=== PATIENT | female | born 1995 | race Caucasian/White ===

== ENCOUNTER 2018-02-26 19:56 | Emergency (ER) | payer OTHER ==
[2018-02-26 20:59] LABS: Urine Specific Gravity 1.015 (1.005-1.030)
[2018-02-26 21:00] LABS: Urine Blood TRACE (NEG); Urine Glucose NEGATIVE (NEG); Urine Protein NEGATIVE (NEG); Urine Specific Gravity 1.015 (1.005-1.030)
[2018-02-26] MEDS ORDERED: KETOROLAC 30 MG/ML INJ ONE (21:47)
--- NOTE | 2018-02-26 21:57 | RAD REPORT ---
EXAM DESCRIPTION: CT - Stone Protocol - 02/26/2018 9:41 pm CLINICAL HISTORY: Flank pain. Nausea COMPARISON: 07/29/2017, 06/30/2017 TECHNIQUE: Axial images were obtained without oral or IV contrast. Lack of contrast limits solid org an and vascular assessment. The [id number] spans the entirety of the system partially obscuring uppermost abdomen and lung bases. Coronal reformatted images were obtained and reviewed. All CT scans are performed using dose optimization technique as appropriate and may include automated exposure control or mA/KV adjustment according to patient size. FINDINGS: The lower lung lund are clear. Imaged portions of the liver and spleen show no suspicious findings on non-contrast imaging. The panc reas and adrenal glands are normal. No pathologic lymphadenopathy in the abdomen or pelvis. No urinary tract stones or obstructive uropathy. No bowel obstruction, free air, free fluid or abscess. Normal appendix noted. No significant bony abnormality. IMPRESSION: No urinary tract stones or obstructive uropathy.
--- NOTE | 2018-02-26 22:01 | EDPHYS ---
Physician Documentation [facility] Name: Crys Tovar Age: 22 yrs Sex: Female : 1995 Arrival Date: 02/26/2018 Time: 20:10 Bed 27 Private MD: ED Physician Savannah Jimenez HPI: 02/26 21:16 This 22 yrs old Female presents to ER via Ambulatory with complaints of snw Vaginal Bleeding, Nausea. 21:16 The patient presents with vaginal bleeding that is light, x 8 days. Onset: The snw symptoms/episode began/occurred gradually. Associated signs and symptoms: Pertinent positives: nausea. Severity of symptoms: At their worst the symptoms were moderate, right lower quad pain started today. The patient has not experienced similar symptoms in the past. It is unknown whether or not the patient has recently seen a physician. [employer]: 20:17 LMP 02/18/2018 aa1 Historical: - Allergies: 20:17 No Known Allergies; aa1 - Home Meds: 20:17 Lexapro Oral [Active]; aa1 - PMHx: 20:17 Anxiety; aa1 - PSHx: 20:17 Tonsillectomy; Adenoids; aa1 - Immunization history:: Flu vaccine is not up to date. - Social history:: Smoking status: Patient/guardian denies using tobacco. ROS: 21:15 Constitutional: Negative for fever, chills, and weight loss, Eyes: Negative for injury, snw pain, redness, and discharge, ENT: Negative for injury, pain, and discharge, Neck: Negative for injury, pain, and swelling, Cardiovascular: Negative for chest pain, palpitations, and edema, Respiratory: Negative for shortness of breath, cough, wheezing, and pleuritic chest pain, Abdomen/GI: Positive for abdominal pain, nausea, negative for vomiting, diarrhea, and constipation, Back: Negative for injury and pain, MS/Extremity: Negative for injury and deformity, Skin: Negative for injury, rash, and discoloration, Neuro: Negative for headache, weakness, numbness, tingling, and seizure. 21:15 : Positive for vaginal bleeding, x 8 days. Exam: 21:14 Constitutional: This is a well developed, well nourished patient who is awake, alert, snw and in no acute distress. Head/Face: Normocephalic, atraumatic. Eyes: Pupils equal round and reactive to light, extra-ocular motions intact. Lids and lashes normal. Conjunctiva and sclera are non-icteric and not injected. Cornea within normal limits. Periorbital areas with no swelling, redness, or edema. ENT: Nares patent. No nasal discharge, no septal abnormalities noted. Tympanic membranes are normal and external auditory canals are clear. Oropharynx with no redness, swelling, or masses, exudates, or evidence of obstruction, uvula midline. Mucous membranes moist. Neck: Trachea midline, no thyromegaly or masses palpated, and no cervical lymphadenopathy. Supple, full range of motion without nuchal rigidity, or vertebral point tenderness. No Meningismus. Chest/axilla: Normal chest wall appearance and motion. Nontender with no deformity. No lesions are appreciated. Cardiovascular: Regular rate and rhythm with a normal S1 and S2. No gallops, murmurs, or rubs. Normal PMI, no JVD. No pulse deficits. Respiratory: Lungs have equal breath sounds bilaterally, clear to auscultation and percussion. No rales, rhonchi or wheezes noted. No increased work of breathing, no retractions or nasal flaring. Back: No spinal tenderness. No costovertebral tenderness. Full range of motion. Skin: Warm, dry with normal turgor. Normal color with no rashes, no lesions, and no evidence of cellulitis. MS/ Extremity: Pulses equal, no cyanosis. Neurovascular intact. Full, normal range of motion. Neuro: Awake and alert, GCS 15, oriented to person, place, time, and situation. Cranial nerves II-XII grossly intact. Motor strength 5/5 in all extremities. Sensory grossly intact. Cerebellar exam normal. Normal gait. 21:14 Abdomen/GI: Inspection: abdomen appears normal, Bowel sounds: normal, in all quadrants, Palpation: moderate abdominal tenderness, severe abdominal tenderness, in the right lower quadrant. Vital Signs: 20:17 BP 119 / 74; Pulse 75; Resp 16; Temp 97.6; Pulse Ox 100% on R/A; Weight 56.7 kg; Height aa1 5 ft. 1 in. (154.94 cm); Pain 7/10; 20:17 Body Mass Index 23.62 (56.70 kg, 154.94 cm) aa1 MDM: 20:57 Patient medically screened. snw 22:30 Data reviewed: vital signs, nurses notes. Data interpreted: Pulse oximetry: on room air snw is 100 %. Interpretation: normal. Counseling: I had a detailed discussion with the patient and/or guardian regarding: the historical points, exam findings, and any diagnostic results supporting the discharge/admit diagnosis, lab results, radiology results, the need for outpatient follow up, for definitive care, to return to the emergency department if symptoms worsen or persist or if there are any questions or concerns that arise at home. Special discussion: Based on the patient's Hx, exam, and Dx evaluation, there is no indication for emergent surgery or inpatient Tx. It is understood by the patient/guardian that if the Sx's persist or worsen they need to return immediately for re-evaluation. Based on the history and exam findings, there is no indication for further emergent testing or inpatient evaluation. 02/26 20:56 Order name: Urine Dipstick--Ancillary (enter results); Complete Time: 21:06 em1 02/26 20:56 Order name: Urine --Ancillary (enter results); Complete Time: 21:06 em1 02/26 21:11 Order name: CT Stone Protocol; Complete Time: 21:59 snw 02/26 20:51 Order name: Urine Test (obtain specimen) snw 02/26 20:51 Order name: Urine Dipstick-Ancillary (obtain specimen) snw Administered Medications: 21:36 Drug: TORadol 60 mg Route: IM; Site: left gluteus; lk1 22:30 Follow up: Response: No adverse reaction; Pain is unchanged, physician notified cr4 Disposition: 02/27 05:11 Co-signature as Attending Physician, Savannah Jimenez MD. ma2 Disposition: 02/26/18 22:00 Discharged to Home. Impression: Lower abdominal pain, unspecified. - Condition is Stable. - Discharge Instructions: Uterine Bleeding, Dysfunctional, Abdominal Pain, Women. - Prescriptions for Diclofenac Sodium 75 mg Oral Tablet Sustained Release - take 1 tablet by ORAL route 2 times per day; 30 tablet. - Medication Reconciliation Form, Thank You Letter, Antibiotic Education, Prescription Opioid Use form. - Follow up: Private Physician; When: 2 - 3 days; Reason: Recheck today's complaints, Continuance of care, Re-evaluation by your physician. Follow up: Emergency Department; When: As needed; Reason: Worsening of condition. Signatures: Dispatcher [employer] Crys Soriano RN RN aa1 Estefania Bennett, DESPATCHING AND RECEIVING CLERK-C DESPATCHING AND RECEIVING CLERK-Csnw Harini Herron RN RN cr4 Elizabeth Shahid RN RN lk1 Savannah Jimenez MD MD ma2
--- NOTE | 2018-02-26 22:01 | ER ---
Nurse's Notes [facility] Name: Crys Tovar Age: 22 yrs Sex: Female : 1995 Arrival Date: 02/26/2018 Time: 20:10 Bed 27 Private MD: Diagnosis: Lower abdominal pain, unspecified Presentation: 02/26 20:15 Presenting complaint: Patient states: vaginal bleeding and nausea x 8 days. Reports she aa1 is concerned bc her period normally only lasts 3 days. Denies heavy bleeding. States, "I just normal bleeding.". Transition of care: patient was not received from another setting of care. Onset of symptoms was February 18, 2018. Care prior to arrival: None. 20:15 Method Of Arrival: Ambulatory aa1 20:15 Acuity: DEB 3 aa1 Triage Assessment: 20:17 General: Appears in no apparent distress. uncomfortable, Behavior is calm, cooperative, aa1 appropriate for age. 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 - Social history:: Smoking status: Patient/guardian denies using tobacco. Screenin:00 Abuse screen: Denies threats or abuse. Nutritional screening: No deficits noted. cr4 Tuberculosis screening: No symptoms or risk factors identified. Fall Risk None identified. Assessment: 22:00 General: Appears uncomfortable, Behavior is calm, cooperative, appropriate for age. cr4 Pain: Complains of pain in right pelvis Pain does not radiate. Pain currently is 8 out of 10 on a pain scale. at worst was 8 out of 10 on a pain scale. Neuro: No deficits noted. Denies weakness blurred vision dizziness, difficulty swallowing, numbness headache. Cardiovascular: No deficits noted. Denies chest pain, lightheadedness, shortness of breath, syncope. Respiratory: No deficits noted. Airway is patent Trachea midline Respiratory effort is even, unlabored. GI: Reports nausea, Patient currently denies reports one loos bowel movement. : Reports vaginal bleeding that is bright red, light flow, 02/19 Denies burning with urination, cramping discharge, pain urinary frequency. EENT: No deficits noted. Derm: No deficits noted. Musculoskeletal: No deficits noted. 22:00 : Urine is clear. cr4 Vital Signs: 20:17 BP 119 / 74; Pulse 75; Resp 16; Temp 97.6; Pulse Ox 100% on R/A; Weight 56.7 kg; Height aa1 5 ft. 1 in. (154.94 cm); Pain 7/10; 20:17 Body Mass Index 23.62 (56.70 kg, 154.94 cm) aa1 ED Course: 20:10 Patient arrived in ED. al2 20:17 Triage completed. aa1 20:17 Arm band placed on right wrist. Patient placed in waiting room, Patient notified of aa1 wait time. 20:43 Urine collected: clean catch specimen, clear. aa1 20:44 Elizabeth Shahid RN is Primary Nurse. lk1 20:50 Estefania Bennett FNP-C [facility]. snw 20:50 Savannah Jimenez MD is Attending Physician. snw 21:38 CT completed. Patient moved to CT via wheelchair. Patient moved back from CT. bq 21:41 CT Stone Protocol In Process Unspecified. EDMS 22:00 Patient has correct armband on for positive identification. Side rails up X 1. Warm cr4 blanket given. 22:34 No provider procedures requiring assistance completed. Patient did not have IV access cr4 during this emergency room visit. Administered Medications: 21:36 Drug: TORadol 60 mg Route: IM; Site: left gluteus; lk1 22:30 Follow up: Response: No adverse reaction; Pain is unchanged, physician notified cr4 Outcome: 22:00 Discharge ordered by . snw 22:26 Patient left the ED. cr4 22:34 Discharged to home ambulatory, with friend. cr4 22:34 Condition: stable 22:34 Discharge instructions given to patient, friend, Instructed on discharge instructions, follow up and referral plans. no drinking with medication, medication usage, Demonstrated understanding of instructions, follow-up care, medications, Prescriptions given X 1. Signatures: Dispatcher [employer] EDRI Crys Saldivar RN RN aa1 Estefania Bennett FNP-C FNP-Csnw Sharifa Lea Claudia RN RN cr4 Elizabeth Shahid RN RN lk1 Laly, Leticia tavera2
== END 2018-02-26 22:26 | disposition home or self-care (01) ==
LOC: ER 19:56
DX: R10.31 Right lower quadrant pain (principal); F41.9 Anxiety disorder, unspecified
CPT/HCPCS: 74176; 76377; 81003; 81025; 96372; 99284

== ENCOUNTER 2018-07-03 18:08 | Emergency (ER) | payer OTHER ==
[2018-07-03 18:37] LABS: Absolute Lymphocytes (CBC) 2.2 K/uL (0.7-4.9); Absolute Monocytes 0.4 K/uL (0.1-1.3); Absolute Neutrophil 3.5 K/uL (1.8-8.0); Basophils % 0.8 % (0-1.3); Eosinophils % 1.1 % (0-4.4); Hematocrit 42.3 % (36.0-45.0); Lymphocytes % 35.3 % (15.3-44.8); MCH 34.9 pg (27.0-35.0); MCV 101.7 fL (80-100); MPV 9.6 fL (7.6-11.3); Monocytes % 6.8 % (3.3-12.3); RBC Red Blood Cell Count 4.15 M/uL (3.86-4.86)
[2018-07-03 18:40] LABS: Protime INR 1.02
[2018-07-03 18:59] LABS: Bilirubin Direct 0.1 mg/dL (0-0.2); Bilirubin Total 0.3 mg/dL (0.2-1.0); Magnesium 2.4 mg/dL (1.8-2.4); Potassium 3.5 mmol/L (3.5-5.1); Protein, Total 7.6 g/dL (6.4-8.2)
[2018-07-03 19:17] LABS: Barbiturates NEGATIVE (NEGATIVE); Benzodiazepines NEGATIVE (NEGATIVE); Cocaine NEGATIVE (NEGATIVE); METHAMPHETAM NEGATIVE (NEGATIVE); Methadone NEGATIVE (NEGATIVE); Opiates NEGATIVE (NEGATIVE); Phencyclidine NEGATIVE (NEGATIVE); THC Cannibis POSITIVE (NEGATIVE)
[2018-07-03 19:22] LABS: Urine Blood NEGATIVE (NEG); Urine Glucose NEGATIVE (NEG); Urine Protein NEGATIVE (NEG); Urine Specific Gravity 1.025 (1.005-1.030)
--- NOTE | 2018-07-03 19:39 | RAD REPORT ---
EXAM DESCRIPTION: RAD - Chest Single View - 07/03/2018 7:25 pm CLINICAL HISTORY: Chest pain COMPARISON: November 2011 TECHNIQUE: AP portable chest image was obtained 1909 hours . FINDINGS: Lungs are clear. Heart and vasculature are normal. No measurable pleural effusion and no p neumothorax. No gross bony abnormality seen. No acute aortic findings suspected. IMPRESSION: No acute cardiopulmonary process. No significant change from comparison.
--- NOTE | 2018-07-03 20:17 | RAD REPORT ---
EXAM DESCRIPTION: CT - Head Brain Wo Cont - 07/03/2018 8:05 pm CLINICAL HISTORY: Left-sided arm weakness and numbness COMPARISON: None. TECHNIQUE: Axial 5 mm thick images of the head were obtained without IV contrast. All CT scans are performed using dose optimization technique as appropriate and may include automated exposure control or mA/KV adjustment according to patient size. FINDINGS: No intracranial hemorrhage, mass, edema or shift of mid-line structures. No acute infarcti on changes seen. No abnormal extra-axial fluid collections. Ventricles are normal. Mastoid air cells and visualized portions of the paranasal sinuses are clear. No acute bony findings. IMPRESSION: Negative non-contrast CT head examination.
--- NOTE | 2018-07-03 20:20 | RAD REPORT ---
EXAM DESCRIPTION: CT - Head angio - 07/03/2018 8:06 pm CLINICAL HISTORY: Left-sided weakness and numbness COMPARISON: None. TECHNIQUE: During dynamic enhancement using nonionic IV contrast, sagittal and axial 2 millimeter th ick images were generated using maximum intensity projection protocol and reviewed. FINDINGS: No aneurysm or vascular malformation. No occlusion identified. There is no vasculitis or o ther focal arterial abnormality seen. Major venous sinuses are patent. IMPRESSION: Negative CT angio head
--- NOTE | 2018-07-03 20:22 | RAD REPORT ---
EXAM DESCRIPTION: CT - Neck Angio - 07/03/2018 8:06 pm CLINICAL HISTORY: Left-sided numbness and weakness COMPARISON: None. TECHNIQUE: During dynamic enhancement using nonionic IV contrast, axial 2 millimeter thick images we re obtained. Sagittal and coronal reformatted images were generated using maximum intensity projectio n protocol. 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 Great vessel origins show no suspicious findings. Both vertebral artery origins are unremarkable. Left vertebral artery is dominant. No vertebral artery dissection. Basilar artery is no rmal. Bilateral common carotid arteries show no dissection, stenosis or focal abnormality. Jugular veins ar e normal. IMPRESSION: Negative CT angio neck.
[2018-07-03] MEDS ORDERED: METOCLOPRAMIDE 10 MG/2mL INJ ONE (20:35)
[2018-07-03] MEDS ORDERED: ONDANSETRON 4 MG/2 ML VIAL ONE (20:35)
[2018-07-03] MEDS ORDERED: ACETAMINOPHEN 325 MG TABLET ONE (20:35)
--- NOTE | 2018-07-03 20:50 | ER ---
Nurse's Notes [facility] Name: Crys Tovar Age: 23 yrs Sex: Female : 1995 Arrival Date: 07/03/2018 Time: 18:11 Bed 7 Private MD: Diagnosis: Weakness-Left Arm and Left Leg;Headache Presentation: 07/03 18:15 Pre-hospital glucose is not applicable to this patient. sv 18:20 Presenting complaint: Mother states: She started texting this morning saying that she aj1 didn't feel good, she was having chest pain that felt like something sitting on her chest, then she started having numbness on her left arm and leg. She said that she couldn't hold anything in her hand. States that these texts started at approximately 0945 this morning, she last saw her daughter appearing normal yesterday. Patient appears drowsy, leaning toward left side of wheelchair. 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 Patient appears to fall asleep when she is not being engaged. Transition of care: patient was not received from another setting of care. An acute neurological deficit is present. The charge nurse has been notified. Onset of symptoms was July 03, 2018 at 09:45. Risk Assessment: Do you want to hurt yourself or someone else? Patient reports no desire to harm self or others. Initial Sepsis Screen: Does the patient meet any 2 criteria? No. Patient's initial sepsis screen is negative. Does the patient have a suspected source of infection? No. Patient's initial sepsis screen is negative. Care prior to arrival: None. 18:20 Method Of Arrival: Wheelchair aj 18:20 Acuity: DEB 2 aj1 Triage Assessment: 18:25 The onset of the patients symptoms was more than six hours ago. The onset of the aj1 patients symptoms was July 03, 2018 at 09:45. General: Appears. General: Appears in no apparent distress. Behavior is drowsy, listless. Pain: Complains of pain in forehead and chest Quality of pain is described as pressure. Neuro: Level of Consciousness is listless, Oriented to person, place, time, situation, Director Instrumentation are weak on left Weakness in left arm(s) leg(s) Pupils are PERRLA, Numbness in left arm and left leg Reports numbness in left arm and left leg weakness in left arm and left leg. Cardiovascular: Patient's skin is warm and dry. Respiratory: Airway is patent Respiratory effort is even, unlabored, Respiratory pattern is regular, symmetrical. 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: 18:25 LMP N/A - control method aj1 Stroke Activation: Symptom onset > 6 hours Physician: Stroke Attending; Name: ; Notified At: ; Arrived At: Physician: Chief Stroke Resident; Name: ; Notified At: ; Arrived At: Physician: Stroke Resident; Name: ; Notified At: ; Arrived At: Physician: ED Attending; Name: ; Notified At: ; Arrived At: Physician: ED Resident; Name: ; Notified At: ; Arrived At: Historical: - Allergies: 18:25 No Known Allergies; aj1 - Home Meds: 18:25 Lexapro Oral [Active]; anxiety medication [Active]; aj1 - PMHx: 18:25 Anxiety; aj1 - PSHx: 18:25 Tonsillectomy; aj1 - Immunization history:: Adult Immunizations up to date. - Social history:: Smoking status: Patient/guardian denies using tobacco. - Ebola Screening: : No symptoms or risks identified at this time. Screenin:23 Abuse screen: Denies threats or abuse. Denies injuries from another. Nutritional sv screening: No deficits noted. Tuberculosis screening: No symptoms or risk factors identified. Fall Risk None identified. 19:19 The patient has not been NPO before screening. The patient is alert, able to follow ao commands. The patient does not exhibit slurred or garbled speech The patient is not exhibiting difficulty speaking. The patient does not exhibit difficulty understanding words. The patient is able to swallow own secretions with no drooling or need for suction. Patient tolerated one teaspoon of water. No drooling, immediate coughing, gurgling, or clearing of the throat was noted. The patient tolerated 90mL of water. No drooling, immediate coughing, gurgling, or clearing of the throat was noted. The patient passed the bedside swallow screening. Oral medications may be given as ordered. Contact Physician for further diet orders. Assessment: 18:15 General: Appears in no apparent distress. uncomfortable, well developed, Behavior is sv cooperative, appropriate for age, anxious. Pain: Complains of pain in chest Pain currently is 5 out of 10 on a pain scale. Quality of pain is described as pressure, "feels like an elephant is sitting on my chest." Pain began 0800 this morning Is intermittent. Neuro: Level of Consciousness is awake, obeys commands, lethargic, Oriented to Director Instrumentation are weak on left Weakness in left arm(s) leg(s) Gait is unsteady, Speech is slurred, Facial droop on left, Facial symmetry: tongue is midline, Reports headache in right numbness in left side of forehead, left christian, left zygomatic area, left cheek, left arm, left leg, left lateral aspect of neck and left anterior aspect of neck weakness Denies blurred vision diplopia. Cardiovascular: Patient's skin is warm and dry. Pulses are 3+ in right radial artery and left radial artery Rhythm is sinus rhythm. Respiratory: Respiratory effort is even, unlabored, Respiratory pattern is regular, symmetrical. GI: Abdomen is flat. : No signs and/or symptoms were reported regarding the genitourinary system. EENT: No signs and/or symptoms were reported regarding the EENT system. Derm: Skin is pink, warm \\T\\ dry. Musculoskeletal: Range of motion: intact in all extremities. 18:40 General: Reports she worked a double yesterday at work and felt "like I was off balance sv but I thought it was because I worked a lot." Pt went to bed around 2300 and woke up around 0800 and felt like an elephant was sitting on her chest. Pt went to work around 1000/1030 and felt numbness to her left side and had a headache on her right head. Pt finished work and got off around 1630 and her mother went to go pick her up and brought her here to the ER. 18:45 Reassessment: Dr Sharpe at bedside assessing pt and speaking with mother about POC. sv 19:00 Reassessment: CT called and informed UPT is negative. sv 19:21 The patient has not been NPO before screening. The patient is alert, and able to follow ao commands. The patient does not exhibit slurred or garbled speech. The patient is not exhibiting difficulty speaking. The patient does not exhibit difficulty understanding words. The patient is able to swallow own secretions with no drooling or need for suction. Patient tolerated one teaspoon of water. No drooling, immediate coughing, gurgling, or clearing of the throat was noted. The patient tolerated 90mL of water. No drooling, immediate coughing, gurgling, or clearing of the throat was noted. The patient passed the bedside swallow screening. Oral medications may be given as ordered. Contact Physician for further diet orders. Provider notified of bedside swallow screening results: Aj Sharpe MD. 19:22 General: Appears in no apparent distress. comfortable, Behavior is calm, cooperative, ao appropriate for age. Pain: Denies pain. Neuro: Level of Consciousness is awake, obeys commands, lethargic, Oriented to person, place, time, situation, Appropriate for age Moves all extremities. Weakness in left arm(s) leg(s) Speech is normal, Facial symmetry appears normal. Cardiovascular: Patient's skin is warm and dry. Pulses are 3+ in right radial artery, right posterior tibial artery, left radial artery and left posterior tibial artery Rhythm is sinus rhythm. Respiratory: Airway is patent Respiratory effort is even, unlabored, Respiratory pattern is regular, symmetrical. GI: Abdomen is flat. : No signs and/or symptoms were reported regarding the genitourinary system. EENT: No signs and/or symptoms were reported regarding the EENT system. Derm: Skin is pink, warm \\T\\ dry. normal, Skin temperature is warm. Musculoskeletal: Circulation, motion, and sensation intact. Range of motion: intact in all extremities, Reports weakness in left side. 20:43 Reassessment: Patient appears in no apparent distress at this time. Patient and/or ao family updated on plan of care and expected duration. Pain level reassessed. Patient is alert, oriented x 3, equal unlabored respirations, skin warm/dry/pink. Patient states feeling better. 22:21 T-PA (Activase) Screening: Contraindications: Other: las well know was 24 hr. ao Vital Signs: 18:25 BP 102 / 68; Pulse 89; Resp 18; Temp 98.5(O); Pulse Ox 99% on R/A; aj1 19:26 BP 112 / 79; Pulse 87; Resp 12; Pulse Ox 98% on R/A; Pain 0/10; ao 20:43 BP 110 / 61; Pulse 82; Resp 16; Pulse Ox 100% ; Pain 0/10; ao [place] Score: 18:28 Eye Response: spontaneous(4). Verbal Response: oriented(5). Motor Response: obeys cp commands(6). Total: 15. NIH Stroke Scale Scores: 18:28 NIHSS Score: 9 cp 18:39 NIHSS Score: 9 sv 19:19 NIHSS Score: 7 ao ED Course: 18:11 Patient arrived in ED. aj1 18:12 Arm band placed on Patient placed in an exam room. aj1 18:15 León Hill NP is PHCP. pm1 18:15 Aj Sharpe MD is Attending Physician. pm1 18:15 Nurse Practitioner and/or Physician Hardwood Flooring Specialist to see patient. sv 18:16 José Manuel Lanza PA is PHCP. pm1 18:20 Initial lab(s) drawn, by me, sent to lab. Inserted saline lock: 18 gauge in right sv antecubital area, using aseptic technique. Blood collected. Flushed right antecubital with 5 ml normal saline. 18:22 Abena Hdez RN is Primary Nurse. sv 18:23 Patient has correct armband on for positive identification. Placed in gown. Bed in low sv position. Call light in reach. Side rails up X2. Adult w/ patient. linter saw sharpener on. Pulse ox on. NIBP on. Door closed. Head of bed elevated. 18:24 Triage completed. aj1 18:29 EKG done, by ED staff, reviewed by José Manuel MILLIGAN. 3 18:30 Radiology exam delayed due to lab results not completed at this time. (BUN/Creatinine). kw1 18:55 Speci-cath kit inserted, using sterile technique, 16 Fr., specimen obtained. returned sv cloudy urine. Patient tolerated poorly. 19:13 Report given to Vanna HAYDEN and Jass RN. sv 19:15 Primary Nurse role handed off by Abena Hdez RN sv 19:19 Jass Webb, JACKELYN is Primary Nurse. ao 19:25 XRAY Chest (1 view) In Process Unspecified. EDMS 19:55 Tigre Knox MD is Attending Physician. cp 20:05 CT completed. Patient moved to CT via stretcher. Patient moved back from CT. cw1 20:06 CT Head Brain wo Cont In Process Unspecified. EDMS 20:06 Head angio In Process Unspecified. EDMS 20:06 Neck Angio In Process Unspecified. EDMS 22:20 No provider procedures requiring assistance completed. Patient transferred, IV remains ao in place. Administered Medications: 20:35 Drug: Tylenol 650 mg Route: PO; ao 21:41 Follow up: Response: No adverse reaction ao 20:38 Drug: Reglan 10 mg Route: IVP; Site: right antecubital; ao 21:41 Follow up: Response: No adverse reaction ao 20:38 Drug: Zofran 4 mg Route: IVP; Site: right antecubital; ao 21:41 Follow up: Response: No adverse reaction ao Point of Care Testing: Blood Glucose: 18:20 Blood Glucose: 89 mg/dL; sv Ranges: Outcome: 20:50 ER care complete, transfer ordered by . cp 22:20 [place] [facility] ground [facility] [place] [facility] [facility] [place] sent w/ patient. ao 22:20 Condition: stable 22:20 Instructed on the need for transfer. 22:21 Patient left the ED. ao NIH Stroke Scale - NIH Stroke Score Date: 07/03/2018 Time: 18:28 Total Score = 9 1a. Level of Consciousness (LOC) - 0(Alert) 1b. Level of Consciousness (LOC) (Year \\T\\ Age) - 0(Both) 1c. LOC Commands (Open \\T\\ Closes Eyes/Packager And Strapper) - 0(Both) 2. Best Gaze (Lateral Gaze Paresis) - 0(Normal) 3. Visual Field Loss - 0(No visual loss) 4. Facial Palsy - 1(Minor Paralysis) 5a. Left Arm: Motor (10-second hold) - 2(Drift, some effort against gravity) 5b. Right Arm: Motor (10-second hold) - 0(No drift) 6a. Left Leg: Motor (5-second hold - always test supine) - 2(Drift, some effort against gravity) 6b. Right Leg: Motor (5-second hold - always test supine) - 0(No drift) 7. Limb Ataxia (finger/nose \\T\\ heel/rizzo - test with eyes open) - 2(Present in two limbs) 8. Sensory Loss (pinprick arms/legs/face) - 1(Mild to moderate loss) 9. Best Language: Aphasia (description/naming/reading) - 0(No aphasia) 10. Dysarthria (speech clarity - read or repeat words) - 1(Mild to Moderate) 11. Extinction and Inattention (visual/tactile/auditory/spatial/personal) - 0(No abnormality) Initials: cp NIH Stroke Scale - NIH Stroke Score Date: 07/03/2018 Time: 18:39 Total Score = 9 1a. Level of Consciousness (LOC) - 0(Alert) 1b. Level of Consciousness (LOC) (Year \\T\\ Age) - 0(Both) 1c. LOC Commands (Open \\T\\ Closes Eyes/Packager And Strapper) - 0(Both) 2. Best Gaze (Lateral Gaze Paresis) - 0(Normal) 3. Visual Field Loss - 0(No visual loss) 4. Facial Palsy - 0(Normal) 5a. Left Arm: Motor (10-second hold) - 3(No effort against gravity) 5b. Right Arm: Motor (10-second hold) - 0(No drift) 6a. Left Leg: Motor (5-second hold - always test supine) - 3(No effort against gravity) 6b. Right Leg: Motor (5-second hold - always test supine) - 0(No drift) 7. Limb Ataxia (finger/nose \\T\\ heel/rizzo - test with eyes open) - 1(Present in one limb) 8. Sensory Loss (pinprick arms/legs/face) - 1(Mild to moderate loss) 9. Best Language: Aphasia (description/naming/reading) - 0(No aphasia) 10. Dysarthria (speech clarity - read or repeat words) - 1(Mild to Moderate) 11. Extinction and Inattention (visual/tactile/auditory/spatial/personal) - 0(No abnormality) Initials: sv NIH Stroke Scale - NIH Stroke Score Date: 07/03/2018 Time: 19:19 Total Score = 7 1a. Level of Consciousness (LOC) - 0(Alert) 1b. Level of Consciousness (LOC) (Year \\T\\ Age) - 0(Both) 1c. LOC Commands (Open \\T\\ Closes Eyes/Packager And Strapper) - 0(Both) 2. Best Gaze (Lateral Gaze Paresis) - 0(Normal) 3. Visual Field Loss - 0(No visual loss) 4. Facial Palsy - 0(Normal) 5a. Left Arm: Motor (10-second hold) - 3(No effort against gravity) 5b. Right Arm: Motor (10-second hold) - 0(No drift) 6a. Left Leg: Motor (5-second hold - always test supine) - 3(No effort against gravity) 6b. Right Leg: Motor (5-second hold - always test supine) - 0(No drift) 7. Limb Ataxia (finger/nose \\T\\ heel/rizzo - test with eyes open) - 1(Present in one limb) 8. Sensory Loss (pinprick arms/legs/face) - 0(Normal) 9. Best Language: Aphasia (description/naming/reading) - 0(No aphasia) 10. Dysarthria (speech clarity - read or repeat words) - 0(Normal) 11. Extinction and Inattention (visual/tactile/auditory/spatial/personal) - 0(No abnormality) Initials: ao Signatures: Dispatcher [employer] Barbara Antoine RN RN aj1 Abena Hdez RN RN Clementine Aiken cw1 José Manuel Lanza PA PA Jass Valdovinos RN RN León Saavedra, FORENSIC STRUCTURAL ENGINEER FORENSIC STRUCTURAL ENGINEER 1 Linda Dowling 3 Britany Combs kw1 Corrections: (The following items were deleted from the chart) 18:28 18:25 Arm band placed on Patient placed in an exam room, aj1 aj1
--- NOTE | 2018-07-03 20:51 | EDPHYS ---
Physician Documentation [facility] Name: Crys Tovar Age: 23 yrs Sex: Female : 1995 Arrival Date: 07/03/2018 Time: 18:11 Bed 7 Private MD: ED Physician Tigre Knox HPI: 07/03 18:19 This 23 yrs old Female presents to ER via Unassigned with complaints of S/S cp of Possible Stroke. 18:19 The patient's problem is reported as weakness, in the left upper extremity, in the left cp lower extremity, slurred speech. 18:19 Onset: The symptoms/episode began/occurred this morning, at 10:00. Duration: The cp episode is continuous. Associated signs and symptoms: Pertinent positives: chest pain, headache, Pertinent negatives: abdominal pain, vomiting. Severity of symptoms: in the emergency department the symptoms are unchanged. Patient's baseline: Neuro: alert and fully oriented, Motor: no deficits, Ambulation: walks without assistance, Speech: normal. 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 - Social history:: Smoking status: Patient/guardian denies using tobacco. - Ebola Screening: : No symptoms or risks identified at this time. ROS: 18:23 Constitutional: Negative for body aches, chills, fever, poor PO intake. cp 18:25 Eyes: Negative for injury, pain, redness, and discharge. cp 18:25 ENT: Negative for drainage from ear(s), ear pain, sore throat, difficulty swallowing, cp difficulty handling secretions. 18:25 Cardiovascular: Positive for chest pain, Negative for edema, palpitations. 18:25 Respiratory: Negative for cough, shortness of breath, wheezing. 18:25 Abdomen/GI: Negative for abdominal pain, nausea, vomiting, and diarrhea, constipation, black/tarry stool, rectal bleeding. 18:25 Back: Negative for pain at rest, pain with movement, radiated pain. 18:25 Skin: Negative for cellulitis, rash. 18:25 Neuro: Positive for headache, speech changes, weakness, of the left arm and left leg, Negative for altered mental status, dizziness, seizure activity, syncope, near syncope. 18:25 All other systems are negative. Exam: 18:25 Head/Face: Normocephalic, atraumatic. Eyes: Pupils equal round and reactive to light, cp extra-ocular motions intact. Lids and lashes normal. Conjunctiva and sclera are non-icteric and not injected. Cornea within normal limits. Periorbital areas with no swelling, redness, or edema. ENT: Nares patent. No nasal discharge, no septal abnormalities noted. Tympanic membranes are normal and external auditory canals are clear. Oropharynx with no redness, swelling, or masses, exudates, or evidence of obstruction, uvula midline. Mucous membranes moist. Neck: Trachea midline, no thyromegaly or masses palpated, and no cervical lymphadenopathy. Supple, full range of motion without nuchal rigidity, or vertebral point tenderness. No Meningismus. Chest/axilla: Normal chest wall appearance and motion. Nontender with no deformity. No lesions are appreciated. 18:25 Constitutional: The patient appears in no acute distress, alert, awake, non-diaphoretic, non-toxic, well developed, well nourished. 18:25 Cardiovascular: Rate: normal, Rhythm: regular, Pulses: Pulses are 2+ in right radial artery and left radial artery. Edema: is not appreciated, JVD: is not appreciated. 18:25 Respiratory: the patient does not display signs of respiratory distress, Respirations: normal, no use of accessory muscles, no retractions, no splinting, no tachypnea, labored breathing, is not present, Breath sounds: are clear throughout, no decreased breath sounds, no stridor, no wheezing. 18:25 Abdomen/GI: Inspection: abdomen appears normal, Bowel sounds: active, all quadrants, Palpation: abdomen is soft and non-tender, in all quadrants, rebound tenderness, is not appreciated, voluntary guarding, is not appreciated, involuntary guarding, is not appreciated. 18:25 Back: pain, is absent, ROM is normal. 18:25 Skin: cellulitis, is not appreciated, no rash present. 18:33 ECG was reviewed by the Attending Physician. cp 20:28 Radiologist reports: no acute findings Vital Signs: 18:25 BP 102 / 68; Pulse 89; Resp 18; Temp 98.5(O); Pulse Ox 99% on R/A; aj1 19:26 BP 112 / 79; Pulse 87; Resp 12; Pulse Ox 98% on R/A; Pain 0/10; ao 20:43 BP 110 / 61; Pulse 82; Resp 16; Pulse Ox 100% ; Pain 0/10; ao NIH Stroke Scale Scores: 18:28 NIHSS Score: 9 cp 18:39 NIHSS Score: 9 sv 19:19 NIHSS Score: 7 ao Pierre Coma Score: 18:28 Eye Response: spontaneous(4). Verbal Response: oriented(5). Motor Response: obeys cp commands(6). Total: 15. MDM: 18:15 Patient medically screened. pm1 18:19 ED course: Patient is not candidate for tpa as onset of weakness to left side was cp before 1000 today. 19:00 Differential diagnosis: CVA, TIA, metabolic disorder, drug effects, cardiac arrythmia. cp 20:30 Data reviewed: vital signs, nurses notes, lab test result(s), EKG, radiologic studies, cp CT scan, plain films. 20:30 Test interpretation: by ED physician or midlevel provider: ECG, plain radiologic cp studies. 20:48 Physician consultation: was contacted at 20:40, DR Bravo, neurologist \T[facility], requests patient be admitted to hospitalist. 07/03 18:24 Order name: Basic Metabolic Panel; Complete Time: 19:11 cp 07/03 19:11 Interpretation: Normal except: GFR 79. cp 07/03 18:24 Order name: CBC with Diff; Complete Time: 18:59 cp 08 18:59 Interpretation: Normal except: MCV 101.7. cp 07/03 18:24 Order name: Ckmb; Complete Time: 19:11 cp 07/03 18:24 Order name: CPK; Complete Time: 19:11 cp 07/03 18:24 Order name: LFT's; Complete Time: 19:11 cp 12 19:59 Interpretation: Normal except: ALK 147; GLOB 3.6. cp 07/03 18:24 Order name: Magnesium; Complete Time: 19:11 cp 07/03 18:24 Order name: NT PRO-BNP; Complete Time: 19:11 cp 08/12 18:24 Order name: PT-INR; Complete Time: 18:59 cp 08/12 18:24 Order name: Ptt, Activated; Complete Time: 18:59 cp 08/12 18:24 Order name: Troponin (emerg Dept Use Only); Complete Time: 19:11 cp 08/12 18:26 Order name: Glucose, Ancillary Testing; Complete Time: 18:59 EDMS 08/12 18:26 Order name: UDS; Complete Time: 19:23 cp 08/12 19:23 Interpretation: Normal except: THC POSITIVE. cp 08/12 19:10 Order name: Urine Dipstick--Ancillary (enter results); Complete Time: 19:23 eb 08/12 19:10 Order name: Urine --Ancillary (enter results); Complete Time: 19:23 eb 08/12 18:24 Order name: Urine Test (obtain specimen); Complete Time: 19:03 cp 08/12 18:24 Order name: XRAY Chest (1 view); Complete Time: 19:59 cp 08/12 19:59 Interpretation: Report review. cp 08/12 18:24 Order name: EKG; Complete Time: 18:25 cp 08/12 18:24 Order name: Cardiac monitoring; Complete Time: 18:29 cp 08/12 18:24 Order name: EKG - Nurse/Tech; Complete Time: 18:29 cp 08/12 18:24 Order name: IV Saline Lock; Complete Time: 18:29 cp 08/12 18:24 Order name: Labs collected and sent; Complete Time: 18:29 cp 08/12 18:24 Order name: O2 Per Protocol; Complete Time: 18:29 cp 08/12 18:24 Order name: O2 Sat Monitoring; Complete Time: 18:29 cp 08/12 18:24 Order name: Urine Dipstick-Ancillary (obtain specimen); Complete Time: 19:03 cp 08/12 18:24 Order name: CT Head Brain wo Cont; Complete Time: 20:23 cp 08/12 20:23 Interpretation: Report reviewed. cp 08/12 18:25 Order name: Head angio; Complete Time: 20:23 EDMS 08/12 20:23 Interpretation: Report reviewed. cp 08/12 18:25 Order name: Neck Angio; Complete Time: 20:23 EDMS 08/12 20:25 Interpretation: Report reviewed. cp EC:33 Rate is 86 beats/min. Rhythm is regular. MD interval is normal. QRS interval is normal. cp QT interval is normal. Interpreted by me. Reviewed by me. Administered Medications: 20:35 Drug: Tylenol 650 mg Route: PO; ao 21:41 Follow up: Response: No adverse reaction ao 20:38 Drug: Reglan 10 mg Route: IVP; Site: right antecubital; ao 21:41 Follow up: Response: No adverse reaction ao 20:38 Drug: Zofran 4 mg Route: IVP; Site: right antecubital; ao 21:41 Follow up: Response: No adverse reaction ao Point of Care Testing: Blood Glucose: 18:20 Blood Glucose: 89 mg/dL; sv Ranges: Critical Glucose Levels:Adult <50 mg/dl or >400 mg/dl <40 mg/dl or >180 mg/dl Disposition: 07/04 04:42 Co-signature as Attending Physician, Tigre Knox MD. Disposition: 07/03/18 20:[address] [facility]. Diagnosis are Weakness - Left Arm and Left Leg, Headache. - Reason for transfer: Higher level of care. - Accepting physician is . - Condition is Stable. - Problem is new. - Symptoms have improved. NIH Stroke Scale - NIH Stroke Score Date: 07/03/2018 Time: 18:28 Total Score = 9 1a. Level of Consciousness (LOC) - 0(Alert) 1b. Level of Consciousness (LOC) (Year \T\ Age) - 0(Both) 1c. LOC Commands (Open \T\ Closes Eyes/Architectural Drafter) - 0(Both) 2. Best Gaze (Lateral Gaze Paresis) - 0(Normal) 3. Visual Field Loss - 0(No visual loss) 4. Facial Palsy - 1(Minor Paralysis) 5a. Left Arm: Motor (10-second hold) - 2(Drift, some effort against gravity) 5b. Right Arm: Motor (10-second hold) - 0(No drift) 6a. Left Leg: Motor (5-second hold - always test supine) - 2(Drift, some effort against gravity) 6b. Right Leg: Motor (5-second hold - always test supine) - 0(No drift) 7. Limb Ataxia (finger/nose \T\ heel/rizzo - test with eyes open) - 2(Present in two limbs) 8. Sensory Loss (pinprick arms/legs/face) - 1(Mild to moderate loss) 9. Best Language: Aphasia (description/naming/reading) - 0(No aphasia) 10. Dysarthria (speech clarity - read or repeat words) - 1(Mild to Moderate) 11. Extinction and Inattention (visual/tactile/auditory/spatial/personal) - 0(No abnormality) Initials: cp NIH Stroke Scale - NIH Stroke Score Date: 07/03/2018 Time: 18:39 Total Score = 9 1a. Level of Consciousness (LOC) - 0(Alert) 1b. Level of Consciousness (LOC) (Year \T\ Age) - 0(Both) 1c. LOC Commands (Open \T\ Closes Eyes/Architectural Drafter) - 0(Both) 2. Best Gaze (Lateral Gaze Paresis) - 0(Normal) 3. Visual Field Loss - 0(No visual loss) 4. Facial Palsy - 0(Normal) 5a. Left Arm: Motor (10-second hold) - 3(No effort against gravity) 5b. Right Arm: Motor (10-second hold) - 0(No drift) 6a. Left Leg: Motor (5-second hold - always test supine) - 3(No effort against gravity) 6b. Right Leg: Motor (5-second hold - always test supine) - 0(No drift) 7. Limb Ataxia (finger/nose \T\ heel/rizzo - test with eyes open) - 1(Present in one limb) 8. Sensory Loss (pinprick arms/legs/face) - 1(Mild to moderate loss) 9. Best Language: Aphasia (description/naming/reading) - 0(No aphasia) 10. Dysarthria (speech clarity - read or repeat words) - 1(Mild to Moderate) 11. Extinction and Inattention (visual/tactile/auditory/spatial/personal) - 0(No abnormality) Initials: sv NIH Stroke Scale - NIH Stroke Score Date: 07/03/2018 Time: 19:19 Total Score = 7 1a. Level of Consciousness (LOC) - 0(Alert) 1b. Level of Consciousness (LOC) (Year \T\ Age) - 0(Both) 1c. LOC Commands (Open \T\ Closes Eyes/Architectural Drafter) - 0(Both) 2. Best Gaze (Lateral Gaze Paresis) - 0(Normal) 3. Visual Field Loss - 0(No visual loss) 4. Facial Palsy - 0(Normal) 5a. Left Arm: Motor (10-second hold) - 3(No effort against gravity) 5b. Right Arm: Motor (10-second hold) - 0(No drift) 6a. Left Leg: Motor (5-second hold - always test supine) - 3(No effort against gravity) 6b. Right Leg: Motor (5-second hold - always test supine) - 0(No drift) 7. Limb Ataxia (finger/nose \T\ heel/rizzo - test with eyes open) - 1(Present in one limb) 8. Sensory Loss (pinprick arms/legs/face) - 0(Normal) 9. Best Language: Aphasia (description/naming/reading) - 0(No aphasia) 10. Dysarthria (speech clarity - read or repeat words) - 0(Normal) 11. Extinction and Inattention (visual/tactile/auditory/spatial/personal) - 0(No abnormality) Initials: ao Signatures: Dispatcher [employer] EDBarbara Tong RN RN aj1 José Manuel Lanza PA PA Jass Valdovinos RN RN ao [place], FIELD SALES REPRESENTATIVE FIELD SALES REPRESENTATIVE pm1 Tigre Knox MD MD gs Corrections: (The following items were deleted from the chart) 07/03 22:21 20:50 07/03/2018 20:[address] [facility]. ao Diagnosis is Weakness - Left Arm and Left Leg; Headache. Reason for transfer: Higher level of care. Accepting physician is . Condition is Stable. Problem is new. Symptoms have improved. cp
--- NOTE | 2018-07-04 05:41 | EKG ---
Test Date: 2018-07-03 Test Time: 18:21:59 Exhaust Worker: LAUREN MEASUREMENT RESULTS: Intervals: Rate: 86 HI: 152 QRSD: 78 QT: 360 QTc: 430 [place]: P: 65 HI: 152 QRS: 82 T: 46 INTERPRETIVE STATEMENTS: Normal sinus rhythm with sinus arrhythmia Normal ECG Compared to ECG 11/29/2011 21:32:36 No significant changes Electronically Signed On 07-04-18 05:40:38 CDT by Arcenio Bee
== END 2018-07-03 22:21 | disposition short-term general hospital (02) ==
LOC: ER 18:08
DX: R51 Headache (principal); F41.9 Anxiety disorder, unspecified
CPT/HCPCS: 36415; 70450; 70496; 70498; 71045; 80048; 80076; 80307; 81003; 81025; 82550; 82553; 82962; 83735; 83880; 84484; 85025; 85610; 85730; 93005; 96374; 96375; 99285; J2405; J2765; Q9967

== ENCOUNTER 2018-12-07 16:39 | Emergency (ER) | payer BC, OTHER ==
--- OUTSIDE RECORDS SUMMARY | 2018-12-07 16:41 | XMS REPORT ---
:1995 [facility] Address [address] [place] [address] Dr. Mcdonald [address] [place] [id number] Care Team Providers Name Role Phone PARI FAULKNER Unavailable Unavailable Problems This patient has no known problems. Allergies, Adverse Reactions, Alerts This patient has no known allergies or adverse reactions. Medications This patient has no known medications. Results Test Description Test Time Test Comments Text Results Atomic Results Result Comments MR, BRAIN, WITHOUT 2018-07-04 20:33:00 FINAL REPORT CONTRAST MRI Brain without contrast Clinical History: HemiplegiaPresents w/ acute onset left sided weakness since this AM Technique: MRI of the brain utilizing axial T2, FLAIR, GRE, DWI; sagittal and coronal T1-weighted images. Comparisons: None Findings: There is no evidence of acute infarct or hemorrhage. There are scattered nonspecific foci of FLAIR signal abnormality in the left greater than right cerebral subcortical white matter. There is no hydrocephalus, midline shift, or apparent mass effect. There are no extra-axial fluid collections. The craniocervical junction is preserved. The major intracranial flow-voids appear patent. IMPRESSION: No evidence of acute infarct, hemorrhage, or hydrocephalus. Scattered nonspecific white matter disease. Signed: Rose Mary Mancera MDReport Verified Date/Time: 07/04/2018 20:33:32 Reading Location: [facility] Radiology Reading Room D DRUG SCREEN, URINE 2018-07-04 15:42:00 Test Item Value Reference Range Comments BARBITURATE URINE (BEAKER) (test avkc=787) Negative Negative BENZODIAZEPINE SCREEN URINE (BEAKER) (test nclq=090) Negative Negative COCAINE (METAB.) SCREEN (BEAKER) (test uwqf=5052) Negative Negative METHADONE SCREEN (BEAKER) (test sglc=8938) Negative Negative OPIATE SCREEN URINE (BEAKER) (test agsd=522) Negative Negative CANNABINOID SCREEN URINE (BEAKER) (test uonb=428) Positive Negative AMPH/METHAMPH SCREEN (BEAKER) (test jzte=7659) Negative Negative PHENCYCLIDINE SCREEN URINE (BEAKER) (test tzrj=406) Negative Negative OXYCODONE SCREEN URINE (BEAKER) (test wqlz=9986) Negative Negative DRUG CUTOFF CONC.Cocaine 300 ng/mL Cannabinoid 50 ng/mL Benzodiazepine 200 ng/mLBarbiturate 200 ng/ mLPhencyclidine 25 ng/mLOpiate 300 ng/mLMethadone 300 ng/mLAmphetamine/ 1000 ng/mL MethamphetamineOxycodone 300 ng/mLThis assay provides an unconfirmed qualitative test result for the clinical management of patients in emergency situations. Chain of custody not maintained. Some jtsb-cba-bgtoxns medications, as well as adulterants, may cause inaccurate results. Clinical correlation should be applied. A more comprehensive drug screen or confirmation of a detected drug may be performed upon request.HEMOGLOBIN [id number] 14:46:00 Test Item Value Reference Range Comments HEMOGLOBIN A1C (BEAKER) (test rnnp=378) 4.9 % 4.3-6.1 [id number] 05:45:00 Test Item Value Reference Range Comments RPR SCREEN (BEAKER) (test xpum=470) Nonreactive Nonreactive VITAMIN [id number] 03:52:00 Test Item Value Reference Range Comments VITAMIN B12 (BEAKER) (test ghse=296) 348 pg/mL 213-816 TSH/FREE T4 IF [id number] 03:52:00 Test Item Value Reference Range Comments THYROID STIMULATING HORMONE (BEAKER) (test 1.95 uIU/mL 0.35-4.94 tcdi=714) [id number] 03:23:00 Test Item Value Reference Range Comments MAGNESIUM (BEAKER) (test ecvf=034) 2.0 mg/dL 1.6-2.6 BASIC METABOLIC [id number] 03:23:00 Test Item Value Reference Range Comments SODIUM (BEAKER) (test 138 meq/L 136-145 osqk=513) POTASSIUM (BEAKER) (test 3.7 meq/L 3.5-5.1 oxds=763) CHLORIDE (BEAKER) (test 105 meq/L 98-107 gyac=433) CO2 (BEAKER) (test 22 meq/L 22-29 yxnf=525) BLOOD UREA NITROGEN 15 mg/dL 7-21 (BEAKER) (test boql=111) CREATININE (BEAKER) (test 0.75 mg/dL 0.57-1.25 vjby=030) GLUCOSE RANDOM (BEAKER) 84 mg/dL 70-105 (test frkp=070) CALCIUM (BEAKER) (test 9.5 mg/dL 8.4-10.2 jhla=698) EGFR (BEAKER) (test 98 mL/min/1.73 sq m ESTIMATED GFR IS NOT vpup=8352) ACCURATE CREATININE CLEARANCE IN PREDICTING GLOMERULAR FILTRATION RATE. ESTIMATED GFR IS NOT APPLICABLE FOR DIALYSIS PATIENTS. LIPID [id number] 03:23:00 Test Item Value Reference Range Comments TRIGLYCERIDES (BEAKER) (test dqpe=545) 41 mg/dL CHOLESTEROL (BEAKER) (test kelo=473) 147 mg/dL HDL CHOLESTEROL (BEAKER) (test ifdu=817) 59 mg/dL LDL CHOLESTEROL CALCULATED (BEAKER) (test 80 mg/dL pztw=701) Triglyceride Reference Range: Low Risk <150 Borderline 150- 199 High Risk 200-499 Very High Risk >=500Cholesterol Reference Range: Low Risk <200 Borderline 200-239 High Risk > 240HDL Cholesterol Reference Range: Low Risk >=60 High Risk <40LDL Cholesterol Reference Range: Optimal <100 Near Optimal 100-129 Borderline 130-159 High 160-189 Very High >=190HEPATIC FUNCTION [id number] 03:23:00 Test Item Value Reference Range Comments TOTAL PROTEIN (BEAKER) (test dpaj=543) 6.9 gm/dL 6.0-8.3 ALBUMIN (BEAKER) (test cnem=2621) 4.0 g/dL 3.5-5.0 BILIRUBIN TOTAL (BEAKER) (test igdr=830) 0.3 mg/dL 0.2-1.2 BILIRUBIN DIRECT (BEAKER) (test lgdi=707) 0.2 mg/dL 0.1-0.5 ALKALINE PHOSPHATASE (BEAKER) (test ikqm=725) 127 U/L 40-150 AST (SGOT) (BEAKER) (test jiti=036) 21 U/L 5-34 ALT (SGPT) (BEAKER) (test aulz=185) 18 U/L 6-55 CREATINE KINASE (CK)2018-07-04 03:23:00 Test Item Value Reference Range Comments CREATINE KINASE TOTAL (BEAKER) (test swjk=330) 115 U/L 29-200 C-REACTIVE [id number] 03:23:00 Test Item Value Reference Range Comments C-REACTIVE PROTEIN (BEAKER) (test rffp=447) 0.14 mg/dL 0.00-0.50 CBC W/PLT COUNT & AUTO [id number] 03:16:00 Test Item Value Reference Range Comments WHITE BLOOD CELL COUNT (BEAKER) (test lxsq=102) 6.8 K/ L 3.5-10.5 RED BLOOD CELL COUNT (BEAKER) (test zfgn=043) 3.91 M/ L 3.93-5.22 HEMOGLOBIN (BEAKER) (test aipg=950) 13.5 GM/DL 11.2-15.7 HEMATOCRIT (BEAKER) (test tdhn=092) 39.6 % 34.1-44.9 MEAN CORPUSCULAR VOLUME (BEAKER) (test fume=612) 101.3 fL 79.4-94.8 MEAN CORPUSCULAR HEMOGLOBIN (BEAKER) (test 34.5 pg 25.6-32.2 dnfo=835) MEAN CORPUSCULAR HEMOGLOBIN CONC (BEAKER) (test 34.1 GM/DL 32.2-35.5 vcfr=511) RED CELL DISTRIBUTION WIDTH (BEAKER) (test 12.2 % 11.7-14.4 srqq=130) PLATELET COUNT (BEAKER) (test ayvl=264) 232 K/CU MM 150-450 MEAN PLATELET VOLUME (BEAKER) (test uwpw=385) 11.1 fL 9.4-12.3 NUCLEATED RED BLOOD CELLS (BEAKER) (test 0 /100 WBC 0-0 lajt=076) NEUTROPHILS RELATIVE PERCENT (BEAKER) (test 47 % hkpx=893) LYMPHOCYTES RELATIVE PERCENT (BEAKER) (test 43 % jsjt=318) MONOCYTES RELATIVE PERCENT (BEAKER) (test 7 % hyem=447) EOSINOPHILS RELATIVE PERCENT (BEAKER) (test 2 % exuc=735) BASOPHILS RELATIVE PERCENT (BEAKER) (test 1 % sorn=087) NEUTROPHILS ABSOLUTE COUNT (BEAKER) (test 3.22 K/ L 1.56-6.13 luzg=646) LYMPHOCYTES ABSOLUTE COUNT (BEAKER) (test 2.90 K/ L 1.18-3.74 llfe=809) MONOCYTES ABSOLUTE COUNT (BEAKER) (test 0.50 K/ L 0.24-0.36 deqa=971) EOSINOPHILS ABSOLUTE COUNT (BEAKER) (test 0.12 K/ L 0.04-0.36 opeb=319) BASOPHILS ABSOLUTE COUNT (BEAKER) (test 0.04 K/ L 0.01-0.08 cdks=636) IMMATURE GRANULOCYTES-RELATIVE PERCENT (BEAKER) 0 % 0-1 (test ebdv=5578)
--- OUTSIDE RECORDS SUMMARY | 2018-12-07 16:41 | XMS REPORT | Clinical Summary ---
:1995 Author Organization [facility] Address [address] [place] [address] Care Team Providers Name Role Phone Gabriel Brunson Primary Care Provider Allergies No Known Allergies Medications Medication Sig Dispensed Refills Start Date End Date Status escitalopram oxalate Take 10 mg by 0 Active (LEXAPRO) 10 MG tablet mouth daily. acetaminophen Take 2 tablets 30 tablet 0 07/05/2018 08/04/2018 (TYLENOL) 325 MG (650 mg total) tablet by mouth every 4 (four) hours as needed for up to 30 days. Active Problems Problem Noted Date Possible Migraine 07/05/2018 Suspected cerebrovascular accident (CVA) 07/04/2018 Left-sided weakness 07/04/2018 Anxiety 07/04/2018 Numbness and tingling in left upper extremity 07/04/2018 Encounters Date Type Specialty Care Team Description 07/03/2018 - Hospital Encounter Cardiology Pari Faulkner Anxiety; 07/05/2018 Rachel Watson, Left-sided weakness; Suspected cerebrovascular accident (CVA) Joe Paul MD after 12/06/2017 Family History Medical History Relation Name Comments Hearing loss Brother Diabetes Father Hyperlipidemia Father Hypertension Father Cancer Maternal Aunt Cancer Maternal Grandfather Cancer Maternal Grandmother Stroke Maternal Grandmother Diabetes Paternal Grandmother Stroke Paternal Grandmother Relation Name Status Comments Brother Father Maternal Aunt Maternal Grandfather Maternal Grandmother Paternal Grandmother Social History Tobacco Use Types Packs/Day Years Used Date Never Smoker Smokeless Tobacco: Never Used Alcohol Use Drinks/Week oz/Week Comments Yes 1 Glasses of wine 1.2 1 1 Shots of liquor Sex Assigned at Date Recorded Not on file Job Start Date Occupation Industry Not on file Not on file Not on file Travel History Travel Start Travel End No recent travel history available. Last Filed Vital Signs Vital Sign Reading Time Taken Blood Pressure 110/55 07/05/2018 7:20 AM CDT Pulse 72 07/05/2018 7:20 AM CDT Temperature 36.1 C (97 F) 07/05/2018 7:20 AM CDT Respiratory Rate 18 07/05/2018 7:20 AM CDT Oxygen Saturation 99% 07/05/2018 7:20 AM CDT Inhaled Oxygen Concentration - - Weight 58.8 kg (129 lb 10.1 oz) 07/04/2018 7:31 AM CDT Height 155.4 cm (5' 1.2") 07/04/2018 1:00 AM CDT Body Mass Index 24.33 07/04/2018 7:31 AM CDT Plan of Treatment Not on file Procedures Procedure Name Priority Date/Time Associated Comments Diagnosis REPORT OF PROCEDURE - 07/06/2018 8:10 ENDOSCOPY SCAN AM CDT RHYTHM STRIP - SCAN 07/06/2018 8:10 AM CDT MR BRAIN WITHOUT IV Routine 07/04/2018 7:50 Results for this CONTRAST PM CDT procedure are in the results section. ECHOCARDIOGRAM REPORT - 07/04/2018 2:52 SCAN PM CDT RAPID DRUG SCREEN, Routine 07/04/2018 2:36 Results for this URINE PM CDT procedure are in the results section. HEMOGLOBIN A1C Routine 07/04/2018 12:25 Results for this PM CDT procedure are in the results section. 2D ECHO W/ DOPPLER Routine 07/04/2018 10:43 Results for this (CW/PW/COLOR) AM CDT procedure are in the results section. CBC W/PLT COUNT & AUTO Routine 07/04/2018 2:39 Results for this DIFFERENTIAL AM CDT procedure are in the results section. C-REACTIVE PROTEIN Routine 07/04/2018 2:39 Results for this AM CDT procedure are in the results section. CREATINE KINASE (CK) Routine 07/04/2018 2:39 Results for this AM CDT procedure are in the results section. RPR Routine 07/04/2018 2:39 Results for this AM CDT procedure are in the results section. TSH/FREE T4 IF Routine 07/04/2018 2:39 Results for this INDICATED AM CDT procedure are in the results section. VITAMIN B12 Routine 07/04/2018 2:39 Results for this AM CDT procedure are in the results section. CBC W/PLT COUNT & AUTO Routine 07/04/2018 2:39 Results for this DIFFERENTIAL AM CDT procedure are in the results section. MAGNESIUM Routine 07/04/2018 2:39 Results for this AM CDT procedure are in the results section. LIPID PANEL Routine 07/04/2018 2:39 Results for this AM CDT procedure are in the results section. HEPATIC FUNCTION PANEL Routine 07/04/2018 2:39 Results for this AM CDT procedure are in the results section. BASIC METABOLIC PANEL Routine 07/04/2018 2:39 Results for this (7) AM CDT procedure are in the results section. after 12/06/2017 Results EKG-SCANNED (07/06/2018 8:10 AM CDT) Narrative Performed At RHYTHM STRIP - SCAN (07/06/2018 8:10 AM CDT) Narrative Performed At MR brain without IV contrast (07/04/2018 7:50 PM CDT) Narrative Performed At FINAL REPORT [facility] MRI Brain without contrast Clinical History: Hemiplegia Presents w/ acute onset left sided weakness since [...] white matter disease. Signed: Rose Mary Mancera MD Report Verified Date/Time:07/04/2018 20:33:32 Reading Location: [facility] Radiology Reading Room Procedure Note Interface, External Ris In - 07/04/2018 8:35 PM CDT FINAL REPORT MRI Brain without contrast Clinical History: Hemiplegia Presents w/ acute onset left sided weakness since [...] white matter disease. Signed: Rose Mary Mancera MD Report Verified Date/Time: 07/04/2018 20:33:32 Reading Location: [facility] Radiology Reading Room Performing Organization Address City/State/Zipcode Phone Number [employer] ECHOCARDIOGRAM REPORT - SCAN (07/04/2018 2:52 PM CDT) Narrative Performed At Rapid drug screen, urine (07/04/2018 2:36 PM CDT) Barbiturate Screen Negative Negative [facility] Benzodiazepine Screen Negative Negative [facility] Cocaine (Metab.) Screen Negative Negative [facility] Methadone Screen Negative Negative [facility] Opiate Screen Negative Negative [facility] Cannabinoid Screen Positive (A) Negative [facility] Amph/Methamph Screen Negative Negative [facility] Phencyclidine Screen Negative Negative [facility] Oxycodone Screen Negative Negative [facility] Specimen Urine - Urine, Voided Narrative Performed At [facility] [facility]C. Cocaine 300 ng/mL Mrayubrbbav43 ng/mL Nrmewwxuadmbgs097 ng/mL Barbiturate 200 ng/mL Stlviazdrxexr02 ng/mL Xkbiow086 ng/mL Methadone 300 ng/mL Amphetamine/ 1000 ng/mL Methamphetamine Oxycodone 300 ng/mL This assay provides an unconfirmed qualitative test result for the clinical management of patients in emergency situations. Chain of custody not maintained. Some zmzr-xxs-hdndiqr medications, as well as adulterants, may cause inaccurate results. Clinical correlation should be applied. A more comprehensive drug screen or confirmation of a detected drug may be performed upon request. Performing Organization Address City/State/Zipcode Phone Number [place] [phone] [place], [place] [phone] [place] Hemoglobin A1c (07/04/2018 12:25 PM CDT) Hemoglobin A1C 4.9 4.3 - 6.1 % [facility] Specimen Blood Performing Organization Address [facility]/Zipcode Phone Number [place] [id number] [place] [address] [phone] [place] 2D Echo W/Doppler(CW/PW/Color) (07/04/2018 10:43 AM CDT) Ejection Fraction [facility] ECHO [facility] Narrative Performed At Transthoracic Echocardiography Report (TTE) [facility] ECHO [facility]ART[facility] CKESSON [facility] Demographics Patient Name PRADEEP BOOTHEADate of Study 07/04/2018 [id number] GenderFemale Visit Number [id number] RaceUnkno [id number] m Number [id number] Number Date of Birth1995 Referring Physician PARI FAULKNER Age23 year(s) Supervising Floorperson Gabriel Daily [facility] Jamel Salinas MD [facility] Physician Procedure Type of Study TTE procedure:2DECHO W DOPPLER(CW/PW/COLOR) (Pending Discharge) Indications:Suspected cardiac source of emboli. Clinical History Anemia Hypoglycemia HGB 13.5 HCT 39.6 % Contrast Medium: Bubble Study. Height: 61 inches Weight: 58.51 kg (129 lbs) BSA: 1.57 m^2 BMI: 24.37 kg/m^2 HR: 70 bpm BP: 108/61 mmHg Summary IV saline contrast injection was negative for a PFO (patent foramen ovale) at rest and post Valsalva . IV saline contrast with delayed imaging is suggestive of intra pulmonic shunting. The left ventricle is chamber size (by vol index) is normal (female - LVED vol - 29-61ml/m2). Normal LV wall thickness. All of the LV segments contract normally . Global LV systolic function normal . Estimated LVEF by qualitative assessment is normal (>60%) . Normal diastolic function. Unable to estimate peak systolic PA pressure; inadequate TR velocity signal. No pericardial effusion is visualized. Previous Study No prior exam available for comparison. Signature Findings Technical Quality: Technically adequate exam. Rhythm/BPRegular sinus rhythm during the exam. Left Ventricle The left ventricle is chamber size (by vol index) is normal (female - LVED vol - 29-61ml/m2). Normal LV wall thickness. All of the LV segments contract no rmally . Global LV systolic function normal . Es timated LVEF by qualitative assessment is normal (> 60%) . Normal diastolic function. Left AtriumLA size is normal (16-34 ml/m2) . Right VentricleThe right ventricular chamber size and systolic fu nction are within normal limits. Right Atrium RA cavity size is normal . Atrial SeptumIV saline contrast injection was negative for a PFO (p atent foramen ovale) at rest and post Valsalva . IV saline contrast with delayed imaging is sinha ggestive of intra pulmonic shunting. Aortic Valve Mild AoV cusp thickening. Ao V cusp mobility is normal . Mitral Valve Mild MV leaflet thickening. No evidence of mitral regurgitation. Tricuspid ValveTV structure is normal. A trace of tricuspid regurgitation. Un able to estimate peak systolic PA pressure; in adequate TR velocity signal. Pulmonic Valve Normal PV structure and function by limited views an d Doppler. AortaAortic root size (SInus of Valsalva diameter) is no rmal . PericardiumNo pericardial effusion is visualized. IVC/SVC/PA/PV/PleuralThe estimated RA pressure by IVC dynamics 5-10mmHg . Th e inferior vena cava size is normal . Th e inferior vena cava is adequately visualized. Chambers/Structures Left Atrium LA Volume: 25.98 ml LA Area: 11.65 cm^2 LA Vol. Index: 17 ml/m^2 Left Ventricle LVIDd: 4.08 cm LV Septum Diastolic: 0.67 cm LV PW Diastolic: 0.69 cm LVEDV Mccallum's:54.37 ml LVEDVI: 35 ml/m^2 LVOT Diameter: 2.06 cm Aorta Ao Root S of [place].: 2.2 cm Doppler/Quantitative Measurements Mitral Valve MV Peak E-Wave: 0.89 m/s MV Peak A-Wave: 0.6 m/s E/A Ratio: 1.5 Peak Gradient: 3.2 mmHg Deceleration Time: 167.9 msec MV Logan. Peak: Aortic Valve Peak Velocity: 1.2 m/s Mean Velocity: 0.74 m/s Peak Gradient: 5.73 mmHg Mean Gradient: 2.66 mmHg AV Area (continuity): 2.66 cm^2 AV VTI: 23.65 cm AV DVI: 0.8 LVOT Peak Velocity: 0.94 m/s Peak Gradient: 3.55 mmHg Mean Velocity: 0.61 m/s Mean Gradient: 1.72 mmHg LVOT Diameter: 2.06 cmLVOT VTI: 18.85 cm LVOT Area: 3.33 cm^2LVOT SV:62.79 ml LVOT CO: 4.4 l/minLVOT CI: 2.8 l/min/m^2 Procedure Note Interface, External Ris In - 07/04/2018 2:10 PM CDT Transthoracic Echocardiography Report (TTE) Demographics Patient Name CRYS BOOTHE Date of Study 07/04/2018 Gender Female Visit Number [id number] Race Unknown Room Number 1038 Number Date of 1995 Referring Physician PARI FAULKNER Age 23 year(s) Supervising Floorperson Gabriel Daily [facility] Reel Blade Bender Furnace Tender Silvia Emmanuel, Interpreting Holland Butcher MD [facility] Physician Procedure Type of Study TTE procedure:2DECHO W DOPPLER(CW/PW/COLOR) (Pending Discharge) Indications:Suspected cardiac source of emboli. Clinical History Anemia Hypoglycemia HGB 13.5 HCT 39.6 % Contrast Medium: Bubble Study. Height: 61 inches Weight: 58.51 kg (129 lbs) BSA: 1.57 m^2 BMI: 24.37 kg/m^2 HR: 70 bpm BP: 108/61 mmHg Summary IV saline contrast injection was negative for a PFO (patent foramen ovale) at rest and post Valsalva . IV saline contrast with delayed imaging is suggestive of intra pulmonic shunting. The left ventricle is chamber size (by vol index) is normal (female - LVED vol - 29-61ml/m2). Normal LV wall thickness. All of the LV segments contract normally . Global LV systolic function normal . Estimated LVEF by qualitative assessment is normal (>60%) . Normal diastolic function. Unable to estimate peak systolic PA pressure; inadequate TR velocity signal. No pericardial effusion is visualized. Previous Study No prior exam available for comparison. Signature Findings Technical Quality: Technically adequate exam. Rhythm/BP Regular sinus rhythm during the exam. Left Ventricle The left ventricle is chamber size (by vol index) is normal (female - LVED vol - 29-61ml/m2). Normal LV wall thickness. All of the LV segments contract normally . Global LV systolic function normal . Estimated LVEF by qualitative assessment is normal (>60%) . Normal diastolic function. Left Atrium LA size is normal (16-34 ml/m2) . Right Ventricle The right ventricular chamber size and systolic function are within normal limits. Right Atrium RA cavity size is normal . Atrial Septum IV saline contrast injection was negative for a PFO (patent foramen ovale) at rest and post Valsalva . IV saline contrast with delayed imaging is suggestive of intra pulmonic shunting. Aortic Valve Mild AoV cusp thickening. AoV cusp mobility is normal . Mitral Valve Mild MV leaflet thickening. No evidence of mitral regurgitation. Tricuspid Valve TV structure is normal. A trace of tricuspid regurgitation. Unable to estimate peak systolic PA pressure; inadequate TR velocity signal. Pulmonic Valve Normal PV structure and function by limited views and Doppler. Aorta Aortic root size (SInus of Valsalva diameter) is normal . Pericardium No pericardial effusion is visualized. IVC/SVC/PA/PV/Pleural The estimated RA pressure by IVC dynamics 5-10mmHg . The inferior vena cava size is normal . The inferior vena cava is adequately visualized. Chambers/Structures Left Atrium LA Volume: 25.98 ml LA Area: 11.65 cm^2 LA Vol. Index: 17 ml/m^2 Left Ventricle LVIDd: 4.08 cm LV Septum Diastolic: 0.67 cm LV PW Diastolic: 0.69 cm LVEDV Mccallum's:54.37 ml LVEDVI: 35 ml/m^2 LVOT Diameter: 2.06 cm Aorta Ao Root S of [place].: 2.2 cm Doppler/Quantitative Measurements Mitral Valve MV Peak E-Wave: 0.89 m/s MV Peak A-Wave: 0.6 m/s E/A Ratio: 1.5 Peak Gradient: 3.2 mmHg Deceleration Time: 167.9 msec MV Logan. Peak: Aortic Valve Peak Velocity: 1.2 m/s Mean Velocity: 0.74 m/s Peak Gradient: 5.73 mmHg Mean Gradient: 2.66 mmHg AV Area (continuity): 2.66 cm^2 AV VTI: 23.65 cm AV DVI: 0.8 LVOT Peak Velocity: 0.94 m/s Peak Gradient: 3.55 mmHg Mean Velocity: 0.61 m/s Mean Gradient: 1.72 mmHg LVOT Diameter: 2.06 cm LVOT VTI: 18.85 cm LVOT Area: 3.33 cm^2 LVOT SV:62.79 ml LVOT CO: 4.4 l/min LVOT CI: 2.8 l/min/m^2 Performing Organization Address City/State/Zipcode Phone Number [facility] TSH/Free T4 If Indicated (07/04/2018 2:39 AM CDT) TSH 1.95 0.35 - 4.94 uIU/mL [facility] Specimen Blood Performing Organization Address City/State/Zipcode Phone Number [facility] [address] [place] [address] [phone] [place] C-Reactive Protein (07/04/2018 2:39 AM CDT) CRP 0.14 0.00 - 0.50 mg/dL [facility] Specimen Blood Performing Organization Address City/State/Zipcode Phone Number [facility] [address] [place] [address] [place] CBC with platelet count + automated diff (07/04/2018 2:39 AM CDT) WBC 6.8 3.5 - 10.5 K/L [facility] RBC 3.91 (L) 3.93 - 5.22 M/L [facility] Hemoglobin 13.5 11.2 - 15.7 GM/DL [facility] Hematocrit 39.6 34.1 - 44.9 % [facility] MCV 101.3 (H) 79.4 - 94.8 fL [facility] MCH 34.5 (H) 25.6 - 32.2 pg [facility] MCHC 34.1 32.2 - 35.5 GM/DL [facility] RDW 12.2 11.7 - 14.4 % [facility] Platelets 232 150 - 450 K/CU MM [facility] MPV 11.1 9.4 - 12.3 fL [facility] nRBC 0 0 - 0 /100 WBC [facility] % Neutros 47 % [facility] % Lymphs 43 % [facility] % Monos 7 % [facility] % Eos 2 % [facility] % Baso 1 % [facility] # Neutros 3.22 1.56 - 6.13 K/L [facility] # Lymphs 2.90 1.18 - 3.74 K/L [facility] # Monos 0.50 (H) 0.24 - 0.36 K/L [facility] # Eos 0.12 0.04 - 0.36 K/L [facility] # Baso 0.04 0.01 - 0.08 K/L [facility] Immature 0 0 - 1 % [facility] Granulocytes-[facility] Specimen Blood Performing Organization Address City/State/Zipcode Phone Number [address] [address] CENTER RPR (07/04/2018 2:39 AM CDT) RPR Nonreactive Nonreactive [facility] Specimen Blood Performing Organization Address City/[facility] Phone Number [address] [address] [facility] Magnesium (07/04/2018 2:39 AM CDT) Magnesium 2.0 1.6 - 2.6 mg/dL [facility] Specimen Blood Performing Organization Address City/[facility]/Zipcode Phone Number [address] [address] CENTER Vitamin B12 (07/04/2018 2:39 AM CDT) Vitamin B12 348 213 - 816 pg/mL [facility] Specimen Blood Performing Organization Address City/[facility]/Zipcode Phone Number [address] [address] C[place] Creatine Kinase (CK) (07/04/2018 2:39 AM CDT) Total CK 115 29 - 200 U/L [facility] Specimen Blood Performing Organization Address City/[facility] Phone Number [address] [address] [place] Hepatic function panel (07/04/2018 2:39 AM CDT) Protein, Total 6.9 6.0 - 8.3 gm/dL [facility] Albumin 4.0 3.5 - 5.0 g/dL [facility] Total Bilirubin 0.3 0.2 - 1.2 mg/dL [facility] Bilirubin, Direct 0.2 0.1 - 0.5 mg/dL [facility] Alkaline Phosphatase 127 40 - 150 U/L [facility] AST 21 5 - 34 U/L [facility] ALT 18 6 - 55 U/L [facility] Specimen Blood Performing Organization Address City/[facility] Phone Number [address] [address] [place] Lipid panel (07/04/2018 2:39 AM CDT) Triglycerides 41 mg/dL [facility] Cholesterol 147 mg/dL [facility] HDL 59 mg/dL [facility] LDL Calculated 80 mg/dL [facility] Specimen Blood Narrative Performed At [facility] Triglyceride Reference Range: Low Risk <150 [id number] High Risk 200-499 Very High Risk>=500 Cholesterol Reference Range: Low Risk <200 [id number] High Risk>240 HDL Cholesterol Reference Range: Low Risk >=60 High Risk <40 LDL Cholesterol Reference Range: Optimal<100 Near Fofxhdz000-443 [id number] Ooxy859-418 Very High >=190 Performing Organization Address City/[facility] Phone Number [address] [address] [place] Basic metabolic panel (07/04/2018 2:39 AM CDT) Sodium 138 136 - 145 meq/L [facility] Potassium 3.7 3.5 - 5.1 meq/L [facility] Chloride 105 98 - 107 meq/L [facility] CO2 22 22 - 29 meq/L [facility] BUN 15 7 - 21 mg/dL [facility] Creatinine 0.75 0.57 - 1.25 mg/dL [facility] Glucose 84 70 - 105 mg/dL [facility] Calcium 9.5 8.4 - 10.2 mg/dL [facility] EGFR 98Comment: ESTIMATED GFR IS mL/min/1.73 sq m [facility] NOT ACCURATE CREATININE [facility] CENTER CLEARANCE IN PREDICTING GLOMERULAR FILTRATION RATE. ESTIMATED GFR IS NOT APPLICABLE FOR DIALYSIS PATIENTS. Specimen Blood Performing Organization Address City/State/Zipcode Phone Number [facility] [address] [place] [phone] CENTER after 12/06/2017 Insurance Payer Benefit Plan / Subscriber ID Type Phone Address Group [employer] - [employer] SIGNATURE ADM xxxxxxxxx PPO TPA BLUE CROSS/BLUE BCBS PPO POS EPO xxxxxxxxxxxx PPO [phone] [address] [place] [address] Advance Directives For more information, please contact:[address] [phone] Code Status Date Activated Date Inactivated Comments Full Code 07/04/2018 12:31 AM 07/05/2018 6:12 PM This code status was determined by: Patient
[2018-12-07] MEDS ORDERED: NA CHLORIDE 0.9% 1,000 ML ONE (17:25)
[2018-12-07 18:25] LABS: Absolute Lymphocytes (CBC) 2.1 K/uL (0.7-4.9); Absolute Monocytes 0.4 K/uL (0.1-1.3); Absolute Neutrophil 3.9 K/uL (1.8-8.0); Basophils % 0.9 % (0-1.3); Eosinophils % 2.3 % (0-4.4); Hematocrit 47.6 % (36.0-45.0); Lymphocytes % 31.8 % (15.3-44.8); MPV 9.9 fL (7.6-11.3); Monocytes % 5.6 % (3.3-12.3); RBC Red Blood Cell Count 4.69 M/uL (3.86-4.86)
[2018-12-07 18:31] LABS: BUN Blood Urea Nitrogen 9 mg/dL (7-18); Bicarbonate 26 mmol/L (21-32); Glucose Level 87 mg/dL (74-106); Potassium 3.8 mmol/L (3.5-5.1); Sodium Level 140 mmol/L (136-145)
[2018-12-07 19:25] LABS: Urine Blood NEGATIVE (NEG); Urine Glucose NEGATIVE (NEG); Urine Protein NEGATIVE (NEG)
--- NOTE | 2018-12-07 20:53 | RAD REPORT ---
EXAM DESCRIPTION: CTAbdomen Pelvis W Contrast - 12/07/2018 8:43 pm CLINICAL HISTORY: Abdominal pain. ABD PAIN COMPARISON: Abdomen Pelvis W Contrast dated 07/29/2017; Abdomen Pelvis W Contrast dated 06/30/2017 TECHNIQUE: Biphasic CT imaging of the abdomen and pelvis was performed with 100 ml non-ionic IV cont rast. All CT scans are performed using dose optimization technique as appropriate and may include automated exposure control or mA/KV adjustment according to patient size. FINDINGS: The lung bases are clear. The liver, spleen, pancreas, adrenal glands and kidneys are within normal limits. No bowel obstruction, free air, free fluid or abscess. The appendix is normal. No evidence of signi ficant lymphadenopathy. No suspicious bony findings. IMPRESSION: No acute intra-abdominal or pelvic finding.
--- NOTE | 2018-12-07 21:03 | EDPHYS ---
Physician Documentation [facility] Name: Crys Tovar Age: 23 yrs Sex: Female : 1995 Arrival Date: 12/07/2018 Time: 16:42 Bed 28 Private MD: Gabriel Brunson ED Physician Aj Sharpe HPI: 12/07 19:39 This 23 yrs old Female presents to ER via Ambulatory with complaints of RIGHT kb LQ PAIN, Nausea. 19:39 The patient presents with abdominal pain that is diffuse. Onset: The symptoms/episode kb began/occurred 3 day(s) ago. The symptoms do not radiate. Associated signs and symptoms: Pertinent positives: nausea, Pertinent negatives: anorexia, blood in stools, chest pain, constipation, diarrhea, dysuria, fever, headache, hematuria, palpitations, shortness of breath, vaginal discharge, vomiting, vomiting blood. The symptoms are described as constant. Modifying factors: The symptoms are alleviated by nothing, the symptoms are aggravated by nothing. Severity of pain: At its worst the pain was moderate in the emergency department the pain is unchanged. The patient has not experienced similar symptoms in the past. The patient has been recently seen by a physician: the patient's primary care provider, 2 day(s) ago, with similar presenting complaints. Pt reports nausea and diffuse abd pain that started 3 days ago. Went to PCP and was told it could be her appendix so if the pain got worse she should come to the ER for evaluation. Reports pain is more in the RLQ now. . Historical: - Allergies: 16:49 No Known Allergies; hb - Home Meds: 16:49 oral BC [Active]; hb - PMHx: 16:49 Anxiety; hb - PSHx: 16:49 Tonsillectomy; hb - Immunization history:: Adult Immunizations up to date. - Social history:: Smoking status: Patient/guardian denies using tobacco. - Ebola Screening: : No symptoms or risks identified at this time. ROS: 19:37 Constitutional: Negative for fever, chills, and weight loss, ENT: Negative for injury, kb pain, and discharge, Neck: Negative for injury, pain, and swelling, Cardiovascular: Negative for chest pain, palpitations, and edema, Respiratory: Negative for shortness of breath, cough, wheezing, and pleuritic chest pain, Back: Negative for injury and pain, : Negative for injury, bleeding, discharge, and swelling, MS/Extremity: Negative for injury and deformity, Skin: Negative for injury, rash, and discoloration, Neuro: Negative for headache, weakness, numbness, tingling, and seizure. 19:37 Abdomen/GI: Positive for abdominal pain, nausea, Negative for vomiting, diarrhea, constipation, abdominal cramps, abdominal distension, anorexia. Exam: 19:38 Constitutional: This is a well developed, well nourished patient who is awake, alert, kb and in no acute distress. Head/Face: Normocephalic, atraumatic. ENT: Nares patent. No nasal discharge, no septal abnormalities noted. Tympanic membranes are normal and external auditory canals are clear. Oropharynx with no redness, swelling, or masses, exudates, or evidence of obstruction, uvula midline. Mucous membranes moist. Neck: Trachea midline, no thyromegaly or masses palpated, and no cervical lymphadenopathy. Supple, full range of motion without nuchal rigidity, or vertebral point tenderness. No Meningismus. Chest/axilla: Normal chest wall appearance and motion. Nontender with no deformity. No lesions are appreciated. Cardiovascular: Regular rate and rhythm with a normal S1 and S2. No gallops, murmurs, or rubs. Normal PMI, no JVD. No pulse deficits. Respiratory: Lungs have equal breath sounds bilaterally, clear to auscultation and percussion. No rales, rhonchi or wheezes noted. No increased work of breathing, no retractions or nasal flaring. Skin: Warm, dry with normal turgor. Normal color with no rashes, no lesions, and no evidence of cellulitis. MS/ Extremity: Pulses equal, no cyanosis. Neurovascular intact. Full, normal range of motion. Neuro: Awake and alert, GCS 15, oriented to person, place, time, and situation. Cranial nerves II-XII grossly intact. Motor strength 5/5 in all extremities. Sensory grossly intact. Cerebellar exam normal. Normal gait. 19:38 Abdomen/GI: Inspection: abdomen appears normal, Bowel sounds: normal, Palpation: soft, in all quadrants, mild abdominal tenderness, in the right upper quadrant, left upper quadrant and left lower quadrant, moderate abdominal tenderness, in the right lower quadrant. Vital Signs: 16:45 BP 129 / 99; Pulse 98; Resp 16; Temp 98.7; Pulse Ox 98% on R/A; Pain 6/10; hb 18:25 BP 134 / 86; Pulse 89; Resp 16; Pulse Ox 99% on R/A; Pain 6/10; ds4 21:02 BP 92 / 50; Pulse 89; Resp 17; Pulse Ox 99% on R/A; rv MDM: 16:50 Patient medically screened. kb 19:37 Data reviewed: vital signs, nurses notes. Data interpreted: Pulse oximetry: on room air kb is 99 %. Interpretation: normal. 21:01 Counseling: I had a detailed discussion with the patient and/or guardian regarding: the kb historical points, exam findings, and any diagnostic results supporting the discharge/admit diagnosis, lab results, radiology results, the need for outpatient follow up, a family practitioner, to return to the emergency department if symptoms worsen or persist or if there are any questions or concerns that arise at home. 12/07 16:56 Order name: Basic Metabolic Panel; Complete Time: 18:43 kb 12/07 16:56 Order name: CBC with Diff; Complete Time: 18:43 kb 12/07 16:56 Order name: CT Abd/Pelvis - W/Contrast; Complete Time: 20:54 kb 12/07 19:16 Order name: Urine Dipstick--Ancillary (enter results); Complete Time: 19:28 ag4 12/07 19:16 Order name: Urine --Ancillary (enter results); Complete Time: 19:28 ag4 12/07 16:56 Order name: IV Saline Lock; Complete Time: 18:17 kb 12/07 16:56 Order name: Labs collected and sent; Complete Time: 18:17 kb 12/07 16:56 Order name: Urine Test (obtain specimen); Complete Time: 19:20 kb 12/07 16:56 Order name: Urine Dipstick-Ancillary (obtain specimen); Complete Time: 19:20 kb Administered Medications: 18:16 Drug: NS 0.9% 1000 ml Route: IV; Rate: 1000 ml; Site: left wrist; rv 19:20 Follow up: IV Status: Completed infusion rv Disposition: 12/07/18 21:02 Discharged to Home. Impression: Generalized abdominal pain. - Condition is Stable. - Discharge Instructions: Abdominal Pain, Adult, [id number]. - Prescriptions for Zofran 4 mg Oral Tablet - take 1 tablet by ORAL route every 12 hours As needed; 20 tablet. Diclofenac Sodium 75 mg Oral Tablet, Delayed Release (E.C.) - take 1 tablet by ORAL route 2 times per day As needed; 30 tablet. - Medication Reconciliation Form, Thank You Letter, Antibiotic Education, Prescription Opioid Use form. - Follow up: Emergency Department; When: As needed; Reason: Worsening of condition. Follow up: Private Physician; When: 2 - 3 days; Reason: Recheck today's complaints, Continuance of care, Re-evaluation by your physician. Addendum: 12/09/2018 07:14 Co-signature as Attending Physician, Aj Sharpe MD. r n Signatures: Dispatcher [employer] EDMS Michelle Yung, MANUFACTURING PROCESS TECHNICIAN-C MANUFACTURING PROCESS TECHNICIAN-CkAj Ceja MD MD rn Baxter, Heather, RN RN Clark Sifuentes RN RN rv Corrections: (The following items were deleted from the chart) 12/07 21:27 21:02 12/07/2018 21:02 Discharged to Home. Impression: Generalized abdominal pain. rv Condition is Stable. Forms are Medication Reconciliation Form, Thank You Letter, Antibiotic Education, Prescription Opioid Use. Follow up: Emergency Department; When: As needed; Reason: Worsening of condition. Follow up: Private Physician; When: 2 - 3 days; Reason: Recheck today's complaints, Continuance of care, Re-evaluation by your physician. kb
--- NOTE | 2018-12-07 21:03 | ER ---
Nurse's Notes [facility] Name: Crys Tovar Age: 23 yrs Sex: Female : 1995 Arrival Date: 12/07/2018 Time: 16:42 Bed 28 Private MD: Gabriel Brunson Diagnosis: Generalized abdominal pain Presentation: 12/07 16:46 Presenting complaint: Patient states: Abdominal pain and nausea x 3 days. Pt report hb pain was diffuse 3 days ago, now periumbilical and RLQ, pain radiates to right groin. Transition of care: patient was not received from another setting of care. Onset of symptoms was December 05, 2018. Risk Assessment: Do you want to hurt yourself or someone else? Patient reports no desire to harm self or others. Care prior to arrival: None. 16:46 Method Of Arrival: Ambulatory 16:46 Acuity: DEB 3 hb 18:20 Initial Sepsis Screen: Does the patient meet any 2 criteria? No. Patient's initial rv sepsis screen is negative. Does the patient have a suspected source of infection? No. Patient's initial sepsis screen is negative. Triage Assessment: 18:20 GI: Reports lower abdominal pain. rv Historical: - Allergies: 16:49 No Known Allergies; hb - Home Meds: 16:49 oral BC [Active]; hb - PMHx: 16:49 Anxiety; hb - PSHx: 16:49 Tonsillectomy; hb - Immunization history:: Adult Immunizations up to date. - Social history:: Smoking status: Patient/guardian denies using tobacco. - Ebola Screening: : No symptoms or risks identified at this time. Screenin:19 Abuse screen: Denies threats or abuse. Denies injuries from another. Nutritional rv screening: No deficits noted. Tuberculosis screening: No symptoms or risk factors identified. Fall Risk None identified. Assessment: 18:18 General: Appears uncomfortable, Behavior is calm, cooperative. Pain: Complains of pain rv in abdomen. Neuro: Level of Consciousness is awake, alert, obeys commands, Oriented to person, place, time, situation. Cardiovascular: Capillary refill < 3 seconds. Respiratory: Airway is patent. GI: Abdomen is flat. : No signs and/or symptoms were reported regarding the genitourinary system. EENT: No signs and/or symptoms were reported regarding the EENT system. Derm: Skin is intact. Musculoskeletal: No signs and/or symptoms reported regarding the musculoskeletal system. Vital Signs: 16:45 BP 129 / 99; Pulse 98; Resp 16; Temp 98.7; Pulse Ox 98% on R/A; Pain 6/10; hb 18:25 BP 134 / 86; Pulse 89; Resp 16; Pulse Ox 99% on R/A; Pain 6/10; ds4 21:02 BP 92 / 50; Pulse 89; Resp 17; Pulse Ox 99% on R/A; rv ED Course: 16:42 Patient arrived in ED. sb2 16:42 Gabriel Brunson MD is Private Physician. sb2 16:49 Triage completed. hb 16:49 Arm band placed on right wrist. hb 16:50 Michelle Yung FNP-C is [facility]. kb 16:50 Aj Sharpe MD is Attending Physician. kb 17:40 Missed attempt(s): 22 gauge in left antecubital area. Bleeding controlled, band aid ds4 applied, catheter tip intact. Missed attempt(s): 22 gauge in right antecubital area. Bleeding controlled, band aid applied, catheter tip intact. 18:14 Missed attempt(s): 22 gauge in right forearm. Bleeding controlled, band aid applied, ss catheter tip intact. 18:16 Inserted saline lock: 22 gauge in left forearm, using aseptic technique. Blood ss collected. 18:19 Patient has correct armband on for positive identification. Bed in low position. Call rv light in reach. Side rails up X 1. Adult w/ patient. Pulse ox on. NIBP on. 18:45 Oral contrast reported to be complete. nj 20:[address] via wheelchair. vm2 20:44 CT completed. Patient moved back from CT. vm2 20:44 CT Abd/Pelvis - W/Contrast In Process Unspecified. EDMS 21:26 No provider procedures requiring assistance completed. IV discontinued, bleeding rv controlled, No redness/swelling at site. Pressure dressing applied. Administered Medications: 18:16 Drug: NS 0.9% 1000 ml Route: IV; Rate: 1000 ml; Site: left wrist; rv 19:20 Follow up: IV Status: Completed infusion rv Outcome: 21:02 Discharge ordered by . kb 21:27 Discharged to home ambulatory. rv 21:27 Condition: good 21:27 Discharge instructions given to patient, family, Instructed on discharge instructions, follow up and referral plans. medication usage, Demonstrated understanding of instructions, follow-up care, medications, Prescriptions given X 2. 21:27 Patient left the ED. rv Signatures: Dispatcher [employer] EDMS Michelle Yung, SWITCHBOARD OPERATOR HELPER-C SWITCHBOARD OPERATOR HELPER-Zoila Henriquez, RN RN Tawanda Giraldo ds4 Mariana Mulligan RN RN Wilton Barnard Victoria 2 Karine Dave 2 Clark Obrien RN RN rv
[2018-12-07] MEDS ORDERED: ONDANSETRON 4 MG/2 ML VIAL ONE (21:05)
[2018-12-07] MEDS ORDERED: MORPHINE 4 MG/ML SYR ONE (21:05)
[2018-12-07] MEDS ORDERED: KETOROLAC 30 MG/ML INJ ONE (21:07)
== END 2018-12-07 21:27 | disposition home or self-care (01) ==
LOC: ER 16:39
DX: R10.84 Generalized abdominal pain (principal)
CPT/HCPCS: 36415; 74177; 80048; 81003; 81025; 85025; 96360; 99284; J2405; J7030; Q9967

== ENCOUNTER 2021-07-13 11:44 | Emergency (ER) | payer BC ==
--- OUTSIDE RECORDS SUMMARY | 2021-07-13 11:47 | XMS REPORT | Continuity of Care Document ---
:1995 Author Organization [facility] t Address [address] [place] [address] Care Team Providers Name Role Phone Carlos Brunson Primary Care Physician Jah [place] Attending Clinician HÉCTOR FAULKNER Attending Clinician Unavailable HÉCTOR FAULKNER Admitting Clinician Unavailable Problems Condition Condition Condition Status Onset Resolution Last Treating Co mments Source Name Details Category Date Date Treatment Clinician Date Possible Possible Disease [facility] Suspected Suspected Disease Active [facility] cerebrovas cerebrovas 07-04 [facility] - cular cular 00:00: Medical accident accident 00 Center (CVA) (CVA) Left-sided Left-sided Disease Active [facility] weakness weakness 07[facility] Anxiety Anxiety Disease [facility] Numbness Numbness Disease [facility] - tingling tingling 00:00: Medica l in left in left 00 Center upper upper extremity extremity Allergies, Adverse Reactions, Alerts This patient has no known allergies or adverse reactions. Family History Family Member Diagnosis Comments Start Date Stop Date Source Natural father Hyperlipidemia [facility] Natural [facility] Maternal aunt Cancer [facility] Maternal grandfather Cancer [facility]aternal grandmother Cancer [facility] Maternal grandmother Stroke [facility] Paternal grandmother Diabetes [facility] Paternal grandmother Stroke [facility] Natural brother Hearing loss [facility] Social History Social Habit Start Date Stop Date Quantity Comments Source Sex Assigned At [facility] Tobacco use and 2018-07-03 2018-07-03 Never used [facility] St [facility] - exposure 00:00:00 00:00:00 [facility] Center Alcohol intake 2018-07-03 2018-07-03 Current drinker [facility] S jodie [facility] - 00:[facility]:00 00:00:00 of alcohol [facility] (finding) Alcohol Comment 2018-07-03 2018-07-03 1 [facility] Era k[facility] - 00:00:00 00:00:00 [facility] Center Smoking Status Start Date Stop Date Source [facility] Medications Ordered Filled Start Stop Current Ordering Indication Dosage Frequency Signature Comments Components Source Medication Medication Date Date Medication? Clinician (SIG) Name Name escitalopra 2018 Yes 10mg QD Take [address] [facility] oxalate 8-14 by mouth [facility] - (LEXAPRO) 16:12: daily. Medica l 10 MG Center tablet Procedures This patient has no known procedures. Plan of Care Planned Activity Planned Date Details Comments Source Future Scheduled 2020-07-[address] [facility] - Test 00:00:00 (#1) [code = [facility] INFLUENZA VACCINE (#1)] Future Scheduled [address] [facility] - Test 00:00:00 malignant neoplasm Medical C enter of cervix (procedure) [code = 429170065] Encounters Start End Encounter Admission Attending Care Care Encounter Source Date/Time Date/Time Type Type Clinicians Facility Department ID 2021-06-27 2021-06-27 ROGER Feliciano [id number] 14:01:41 15:01:41 Visit [facility] [id number] CLINICS [id number] Results Test Description Test Time Test Comments Results Result [facility] e Comments MR, BRAIN, 2018-07-04 FINAL REPORT PATIENT ID: WITHOUT CONTRAST 20:33:00 [id number] MRI Brain without contrast Clinical History: HemiplegiaPresents [...] nonspecific white matter disease. Signed: Rose Mary Manceraeport Verified Date/Time: 07/04/2018 20:33:32 Reading Location: [facility] Radiology Reading Room D DRUG SCREEN, URINE 2018-07-04 15:42:00 Test Item Value Reference Range Interpretation Comme nts BARBITURATE URINE (BEAKER) (test code = 725) Negative Negative BENZODIAZEPINE SCREEN URINE (BEAKER) (test code = 726) Negative Negative COCAINE (METAB.) SCREEN (BEAKER) (test code = 1164) Negative Ne gative METHADONE SCREEN (BEAKER) (test code = 1436) Negative Negative OPIATE SCREEN URINE (BEAKER) (test code = 734) Negative Negativ e CANNABINOID SCREEN URINE (BEAKER) (test code = 727) Positive Ne gative A AMPH/METHAMPH SCREEN (BEAKER) (test code = 1438) Negative Negat magan PHENCYCLIDINE SCREEN URINE (BEAKER) (test code = 608) Negative Negative OXYCODONE SCREEN URINE (BEAKER) (test code = 2761) Negative Neg ative DRUG CUTOFF CONC.Cocaine 300 ng/mL Cannabinoid 50 ng/mL Benzodiazepine 200 ng/mLBarbiturate 200 ng/mLPhencyclidine 25 ng/mLOpiate 300 ng/mLMethadone 300 ng/mLAmphetamine/ 1000 ng/mL MethamphetamineOxycodone 300 ng/mLThis assay provides an unconfirmed qualitative test result for the clinical management of patients in emergency situations. Chain of custody not maintained. Some nlnr-bee-qcidonh medications, as well as adulterants, may cause inaccurate results. Clinical correlation should be applied. A more comprehensive drug screen or confirmation of a detected drug may be performed upon request. HEMOGLOBIN [id number] 14:46:00 Test Item Value Reference Range Interpretation Comments HEMOGLOBIN A1C (BEAKER) (test code = 4.9 % 4.3-6.1 368) [id number] 05:45:00 Test Item Value Reference Range Interpretation Comments RPR SCREEN (BEAKER) (test code = Nonreactive Nonreactive 420) VITAMIN [id number] 03:52:00 Test Item Value Reference Range Interpretation Comments VITAMIN B12 (BEAKER) (test code = 348 pg/mL 213-816 774) TSH/FREE T4 IF [id number] 03:52:00 Test Item Value Reference Range Interpretation Comments THYROID STIMULATING HORMONE 1.95 uIU/mL 0.35-4.94 (BEAKER) (test code = 772) [id number] 03:23:00 Test Item Value Reference Range Interpretation Comments MAGNESIUM (BEAKER) (test code = 2.0 mg/dL 1.6-2.6 627) BASIC METABOLIC [id number] 03:23:00 Test Item Value Reference Range Interpretation Comments SODIUM (BEAKER) 138 meq/L 136-145 (test code = 381) POTASSIUM (BEAKER) 3.7 meq/L 3.5-5.1 (test code = 379) CHLORIDE (BEAKER) 105 meq/L 98-107 (test code = 382) CO2 (BEAKER) (test 22 meq/L 22-29 code = 355) BLOOD UREA NITROGEN 15 mg/dL 7-21 (BEAKER) (test code = 354) CREATININE (BEAKER) 0.75 mg/dL 0.57-1.25 (test code = 358) GLUCOSE RANDOM 84 mg/dL 70-105 (BEAKER) (test code = 652) CALCIUM (BEAKER) 9.5 mg/dL 8.4-10.2 (test code = 697) EGFR (BEAKER) (test 98 mL/min/1.73 ESTIMA BETSY GFR IS code = 1092) sq m NOT ACCURATE CREATININE CLEARANCE IN PREDICTING GLOMERULAR FILTRATION RATE . ESTIMATED GFR I S NOT APPLICABLE FOR DIALYSIS PATIEN TS. LIPID [id number] 03:23:00 Test Item Value Reference Range Interpretation Comments TRIGLYCERIDES (BEAKER) (test code = 41 mg/dL 540) CHOLESTEROL (BEAKER) (test code = 147 mg/dL 631) HDL CHOLESTEROL (BEAKER) (test code 59 mg/dL = 976) LDL CHOLESTEROL CALCULATED (BEAKER) 80 mg/dL (test code = 633) Triglyceride Reference Range: Low Risk <150 Borderline 150-199 High Risk 200-499 Very High Risk >=500Cholesterol Reference Range: Low Risk <200 Borderline 200-239 High Risk >240HDL Cholesterol Reference Range: Low Risk >=60 High Risk <40LDL Cholesterol Reference Range: Optimal <100 Near Optimal 100-129 Borderline 130-159 High 160-189 Very High >=190HEPATIC FUNCTION [id number] 03:23:00 Test Item Value Reference Range Interpretation Comments TOTAL PROTEIN (BEAKER) (test code = 6.9 gm/dL 6.0-8.3 770) ALBUMIN (BEAKER) (test code = 1145) 4.0 g/dL 3.5-5.0 BILIRUBIN TOTAL (BEAKER) (test code 0.3 mg/dL 0.2-1.2 = 377) BILIRUBIN DIRECT (BEAKER) (test 0.2 mg/dL 0.1-0.5 code = 706) ALKALINE PHOSPHATASE (BEAKER) (test 127 U/L 40-150 code = 346) AST (SGOT) (BEAKER) (test code = 21 U/L 5-34 353) ALT (SGPT) (BEAKER) (test code = 18 U/L 6-55 347) CREATINE KINASE (CK)2018-07-04 03:23:00 Test Item Value Reference Range Interpretation Comments CREATINE KINASE TOTAL (BEAKER) (test 115 U/L 29-200 code = 380) C-REACTIVE [id number] 03:23:00 Test Item Value Reference Range Interpretation Comments C-REACTIVE PROTEIN (BEAKER) (test 0.14 mg/dL 0.00-0.50 code = 676) CBC W/PLT COUNT & AUTO [id number] 03:16:00 Test Item Value Reference Range Interpretation Comments WHITE BLOOD CELL COUNT (BEAKER) 6.8 K/ L 3.5-10.5 (test code = 775) RED BLOOD CELL COUNT (BEAKER) 3.91 M/ L 3.93-5.22 L (test code = 761) HEMOGLOBIN (BEAKER) (test code = 13.5 GM/DL 11.2-15.7 410) HEMATOCRIT (BEAKER) (test code = 39.6 % 34.1-44.9 411) MEAN CORPUSCULAR VOLUME (BEAKER) 101.3 fL 79.4-94.8 H (test code = 753) MEAN CORPUSCULAR HEMOGLOBIN 34.5 pg 25.6-32.2 H (BEAKER) (test code = 751) MEAN CORPUSCULAR HEMOGLOBIN CONC 34.1 GM/DL 32.2-35.5 (BEAKER) (test code = 752) RED CELL DISTRIBUTION WIDTH 12.2 % 11.7-14.4 (BEAKER) (test code = 412) PLATELET COUNT (BEAKER) (test 232 K/CU MM 150-450 code = 756) MEAN PLATELET VOLUME (BEAKER) 11.1 fL 9.4-12.3 (test code = 754) NUCLEATED RED BLOOD CELLS 0 /100 WBC 0-0 (BEAKER) (test code = 413) NEUTROPHILS RELATIVE PERCENT 47 % (BEAKER) (test code = 429) LYMPHOCYTES RELATIVE PERCENT 43 % (BEAKER) (test code = 430) MONOCYTES RELATIVE PERCENT 7 % (BEAKER) (test code = 431) EOSINOPHILS RELATIVE PERCENT 2 % (BEAKER) (test code = 432) BASOPHILS RELATIVE PERCENT 1 % (BEAKER) (test code = 437) NEUTROPHILS ABSOLUTE COUNT 3.22 K/ L 1.56-6.13 (BEAKER) (test code = 670) LYMPHOCYTES ABSOLUTE COUNT 2.90 K/ L 1.18-3.74 (BEAKER) (test code = 414) MONOCYTES ABSOLUTE COUNT (BEAKER) 0.50 K/ L 0.24-0.36 H (test code = 415) EOSINOPHILS ABSOLUTE COUNT 0.12 K/ L 0.04-0.36 (BEAKER) (test code = 416) BASOPHILS ABSOLUTE COUNT (BEAKER) 0.04 K/ L 0.01-0.08 (test code = 417) IMMATURE GRANULOCYTES-RELATIVE 0 % 0-1 PERCENT (BEAKER) (test code = 2801)
[2021-07-13 13:47] LABS: Absolute Lymphocytes (CBC) 1.5 K/uL (0.7-4.9); Basophils % 0.3 % (0-1.3); Hematocrit 43.2 % (36.0-45.0); Lymphocytes % 23.6 % (15.3-44.8); MPV 9.8 fL (7.6-11.3); RBC Red Blood Cell Count 4.48 M/uL (3.86-4.86)
--- NOTE | 2021-07-13 13:57 | RAD REPORT ---
EXAM DESCRIPTION: RAD - Chest Single View - 07/13/2021 1:11 pm CLINICAL HISTORY: COUGH, COVID positive COMPARISON: July 2018 TECHNIQUE: AP portable chest image was obtained 07/13/2021 1:11 pm . FINDINGS: Lung volumes are low. Bilateral airspace opacities are present in both lung lund with re lative sparing of the left apex. Given the provided history this is almost certainly [id number] bilateral COVID-19 pneumonia. Heart and vasculature are normal. No measurable pleural effusion and no pneumothorax. No acute bony abnormality seen. No acute aortic findings suspected. IMPRESSION: Mild to moderate bilateral COVID-19 pneumonia pattern.
[2021-07-13 14:21] LABS: ALT/SGPT 53 U/L (12-78); AST/SGOT 37 U/L (15-37); Albumin 3.6 g/dL (3.4-5.0); Alkaline Phosphatase 211 U/L (45-117); BUN Blood Urea Nitrogen 8 mg/dL (7-18); Bicarbonate 24 mmol/L (21-32); Bilirubin Direct 0.4 mg/dL (0-0.2); Bilirubin Total 0.8 mg/dL (0.2-1.0); Ferritin 240.2 ng/mL (8-388); Glucose Level 79 mg/dL (74-106); Lipase 93 U/L (73-393); Potassium 3.3 mmol/L (3.5-5.1); Protein, Total 8.7 g/dL (6.4-8.2); Sodium Level 139 mmol/L (136-145)
[2021-07-13 14:38] LABS: Blood Morphology Comment NOT SEEN (NOT SEEN); Platelet Estimate ADEQ
[2021-07-13] MEDS ORDERED: CASIRIVIMAB/IMDEVIMAB 10 ML in NA CHLORIDE 0.9% 250 ML IV ONE (15:15)
[2021-07-13 15:18] LABS: Urine Blood Negative (Negative); Urine Glucose Negative (Negative); Urine Protein 1+ (Negative); Urine Specific Gravity 1.015 (1.005-1.030); Urine pH 6.5 (5.0-7.0)
[2021-07-13] MEDS ORDERED: METHYLPREDNISOLONE 125 MG INJ ONE (15:27)
[2021-07-13] MEDS ORDERED: ONDANSETRON 4 MG/2 ML VIAL ONE (15:27)
[2021-07-13] MEDS ORDERED: NA CHLORIDE 0.9% 1,000 ML ONE (15:28)
[2021-07-13] MEDS ORDERED: FAMOTIDINE 20 MG/2 ML VIAL IV ONE (15:28)
[2021-07-13 16:03] LABS: Urine Specific Gravity/Preg 1.015 (1.005-1.030)
--- NOTE | 2021-07-13 16:22 | RAD REPORT ---
EXAM DESCRIPTION: CT - Chest For Pe Angio - 07/13/2021 3:58 pm CLINICAL HISTORY: SOB, COVID positive, shortness of breath COMPARISON: Abdomen Pelvis W Contrast dated 07/13/2021 TECHNIQUE: Dynamically enhanced 2 mm thick images of the chest were obtained during administration o f approximately 100mL Isovue 370 IV contrast. Coronal and oblique MIP reconstruction images were gene rated and reviewed. Exam utilizes a protocol to evaluate the pulmonary arterial tree. Due to IV issue s and injector malfunction imaging was delayed in required additional contrast administration. All CT scans are performed using dose optimization technique as appropriate and may include automated exposure control or mA/KV adjustment according to patient size. FINDINGS: Pulmonary arterial tree enhancement is not optimal but felt to be sufficient for exclusion of any significant pulmonary embolic disease. The aorta as imaged shows no acute or suspicious finding. No pericardial thickening or effusion. Ground-glass airspace opacification involves majority of the right upper lobe. Numerous additional ro unded areas of ground-glass opacification are present in the mid and lower bilateral lung lund prim arily peripheral in distribution. This is a pattern well described with COVID-19 pneumonia and is con sistent with the provided history. Non COVID viral pneumonia and organizing pneumonia are possibiliti es. No cavitation or mass. No pleural effusion or pleural thickening. No mediastinal or hilar suspicious masses. No chest wall masses or abnormal axillary lymphadenopathy. IMPRESSION: No pulmonary emboli identified. Mild to moderate bilateral COVID-19 pneumonia pattern.
--- NOTE | 2021-07-13 16:24 | RAD REPORT ---
EXAM DESCRIPTION: CT - Abdomen Pelvis W Contrast - 07/13/2021 3:58 pm CLINICAL HISTORY: ABD PAIN, COVID positive COMPARISON: Abdomen Pelvis W Contrast dated 12/07/2018 TECHNIQUE: Biphasic, helical CT imaging of the abdomen and pelvis was performed following 100 ml non -ionic IV contrast. Due to injection malfunction IV access tissues patient had to be re- administered contrast. No oral contrast administered. All CT scans are performed using dose optimization technique as appropriate and may include automated exposure control or mA/KV adjustment according to patient size. FINDINGS: Lung base findings are detailed in separate CT chest PE report The liver, spleen, and pancreas show no suspicious findings. Gallbladder and biliary tree are also wi thout suspicious finding. Symmetric renal function is seen with no hydronephrosis or suspicious renal mass. No pyelonephritis o r acute parenchymal process. No bladder abnormalities. No adrenal abnormalities. No uterine abnormali ty. Left ovary is unremarkable. Right ovary shows a collapsed or involuting ovarian cyst 15 mm in siz e. Trace amount of free fluid is seen in the adnexa. Physiologic free fluid in the cul de sac. No dilated bowel loops or bowel wall thickening. No appendicitis. No free air or pneumatosis. No her yang, mass or bulky lymphadenopathy. A few small sub centimeter mesenteric lymph nodes are present. No suspicious bony findings. IMPRESSION: Contrast enhanced CT abdomen and pelvis showing no acute or emergent finding finding. Nonacute findings detailed in the body of the report.
[2021-07-13] MEDS ORDERED: POTASSIUM 25 MEQ EFFERV TAB ONE (17:14)
--- NOTE | 2021-07-13 17:40 | ER ---
Nurse's Notes [facility] Name: Crys Tovar Age: 26 yrs Sex: Female : 1995 Arrival Date: 07/13/2021 Time: 11:47 Bed 12 Private MD: Diagnosis: Other viral pneumonia;SARS-associated coronavirus as the cause of diseases classified elsewhere;Nausea Presentation: 07/13 13:16 Chief complaint: Patient states: tested positive for COVID on , has had iw vomiting, diarrhea, can't hold anything down. Ebola Screen: Patient negative for fever greater than or equal to 101.5 degrees Fahrenheit, and additional compatible Ebola Virus Disease symptoms Patient denies exposure to infectious person. Patient denies travel to an Ebola-affected area in the 21 days before illness onset. No symptoms or risks identified at this time. Initial Sepsis Screen: Does the patient meet any 2 criteria? No. Patient's initial sepsis screen is negative. Does the patient have a suspected source of infection? No. Patient's initial sepsis screen is negative. Risk Assessment: Do you want to hurt yourself or someone else? Patient reports no desire to harm self or others. Onset of symptoms was July 13, 2021. 13:16 Method Of Arrival: Ambulatory iw 13:16 Acuity: DEB 3 iw Historical: - Allergies: 13:17 No Known Allergies; iw - PMHx: 13:17 Anxiety; iw Screenin:49 Abuse screen: Denies threats or abuse. Denies injuries from another. Nutritional iw screening: No deficits noted. Tuberculosis screening: No symptoms or risk factors identified. Fall Risk None identified. Assessment: 15:49 Reassessment: Patient appears in no apparent distress at this time. Patient and/or iw family updated on plan of care and expected duration. Pain level reassessed. Patient is alert, oriented x 3, equal unlabored respirations, skin warm/dry/pink. 16:41 Reassessment: Patient appears in no apparent distress at this time. Patient and/or iw family updated on plan of care and expected duration. Pain level reassessed. Patient is alert, oriented x 3, equal unlabored respirations, skin warm/dry/pink. Vital Signs: 14:31 BP 118 / 72; Pulse 105; Resp 20; Temp 99.2(O); Pulse Ox 99% on R/A; Weight 32.34 kg; em1 Height 5 ft. 1 in. (154.94 cm); 14:31 Body Mass Index 13.47 (32.34 kg, 154.94 cm) em1 ED Course: 11:47 Patient arrived in ED. as 12:16 José Manuel Lanza PA is PHCP. cp 12:16 José Manuel Rg MD is Attending Physician. cp 13:11 XRAY Chest (1 view) In Process Unspecified. EDMS 13:16 Marsha Mary RN is Primary Nurse. iw 13:17 Triage completed. iw 13:17 Arm band placed on. iw 13:42 Initial lab(s) drawn, by me, sent to lab. Inserted saline lock: 22 gauge in right em1 wrist, using aseptic technique. Blood collected. 14:31 EKG done, by ED staff, reviewed by José Manuel MILLIGAN. em1 15:58 CT Abd/Pelvis - IV Contrast Only In Process Unspecified. EDMS 15:58 CT Chest For PE Angio In Process Unspecified. EDMS Administered Medications: 15:13 Drug: NS 0.9% 1000 ml Route: IV; Rate: 1 bolus; Site: right hand; iw 15:14 Drug: Zofran (Ondansetron) 4 mg Route: IVP; Site: right wrist; iw 15:14 Drug: Pepcid (famotidine) 20 mg Route: IVP; Site: right wrist; iw 15:14 Drug: SOLU-Medrol (methylPrednisoLONE) 125 mg Route: IVP; Site: right wrist; iw 16:15 Drug: REGEN-COV Dose Pack 120 mg/mL-120 mg/mL (EUA) 260 ml Route: IV; Rate: calculated iw rate; Site: right wrist; 17:17 Drug: Potassium Effervescent Tablet 50 mEq Route: PO; iw 20:15 Not Given (Patient Refused): Tessalon Perle (benzonatate) 200 mg PO once iw 20:16 Not Given (Patient Refused): NS 0.9% 1000 ml IV at 1 bolus Per protocol; 1000 mL bolus iw Outcome: 17:40 Discharge ordered by . cp 18:19 Patient left the ED. iw Signatures: Dispatcher [employer] EDMS Padma Fuentes as Marsha Mary RN RN iw Terrance Fuentes em1 Page, José Manuel, PA PA cp
--- NOTE | 2021-07-13 17:40 | EDPHYS ---
Physician Documentation [facility] Name: Crys Tovar Age: 26 yrs Sex: Female : 1995 Arrival Date: 07/13/2021 Time: 11:47 Bed 12 Private MD: ED Physician José Manuel Rg HPI: 07/13 13:00 This 26 yrs old Female presents to ER via Ambulatory with complaints of cp covid+, symptoms worsening. 13:00 The patient has shortness of breath at rest. cp 13:00 Onset: The symptoms/episode began/occurred gradually. Duration: The symptoms are cp continuous, and are steadily getting worse. Associated signs and symptoms: Pertinent positives: nausea, vomiting, diarrhea, Pertinent negatives: chest pain, productive cough, fever. Patient reports testing positive for COVID-19 10 days ago. Historical: - Allergies: 13:17 No Known Allergies; iw - PMHx: 13:17 Anxiety; iw ROS: 13:05 Constitutional: Negative for body aches, chills, poor PO intake. cp 13:05 Eyes: Negative for injury, pain, redness, and discharge. cp 13:05 Cardiovascular: Negative for chest pain, edema, palpitations. 13:05 Respiratory: Positive for cough, with no reported sputum, shortness of breath, on exertion. Negative for wheezing. 13:05 Abdomen/GI: Positive for nausea, Negative for abdominal pain, vomiting, diarrhea, constipation. 13:05 Back: Negative for radiated pain. 13:05 : Negative for urinary symptoms. 13:05 Neuro: Positive for weakness, Negative for altered mental status, headache, syncope. 13:05 All other systems are negative. Exam: 13:10 Constitutional: The patient appears in no acute distress, alert, awake, non-toxic, well cp developed, well nourished. 13:10 Head/Face: Normocephalic, atraumatic. cp 13:10 Eyes: Periorbital structures: appear normal, Conjunctiva: normal, no exudate, no injection, Sclera: no appreciated abnormality, Lids and lashes: appear normal, bilaterally. 13:10 ENT: External ear(s): are unremarkable, Nose: is normal, Mouth: Lips: moist, Oral mucosa: moist, Posterior pharynx: Airway: no evidence of obstruction, patent. 13:10 Neck: ROM/movement: is normal, is supple, no meningismus, no nuchal rigidity. 13:10 Chest/axilla: Inspection: normal, Palpation: is normal, no crepitus, no tenderness. 13:10 Cardiovascular: Rate: tachycardic, Rhythm: regular, Edema: is not appreciated, JVD: is not appreciated. 13:10 Respiratory: the patient does not display signs of respiratory distress, Respirations: labored breathing, is not present, shallow respirations, that is mild, Breath sounds: bronchial sounds, that are mild, are heard diffusely. 13:10 Abdomen/GI: Inspection: abdomen appears normal, Palpation: soft, in all quadrants, moderate abdominal tenderness, in the right upper quadrant and left upper quadrant, rebound tenderness, is not appreciated, involuntary guarding, is not appreciated. 13:10 Back: pain, is absent, ROM is normal. 13:10 Skin: no rash present. 13:10 Neuro: Orientation: to person, place \T\ time. Mentation: is normal. 14:33 ECG was reviewed by the Attending Physician. cp Vital Signs: 14:31 BP 118 / 72; Pulse 105; Resp 20; Temp 99.2(O); Pulse Ox 99% on R/A; Weight 32.34 kg; em1 Height 5 ft. 1 in. (154.94 cm); 14:31 Body Mass Index 13.47 (32.34 kg, 154.94 cm) em1 MDM: 12:55 Patient medically screened. cp 13:00 Differential diagnosis: Bronchitis pneumonia, pulmonary edema, Pulmonary Embolism cp Sepsis electrolyte abnormality, dehydration. 17:40 Data reviewed: vital signs, nurses notes, lab test result(s), EKG, radiologic studies, cp CT scan, plain films. 17:40 Test interpretation: by ED physician or midlevel provider: ECG, plain radiologic cp studies. Counseling: I had a detailed discussion with the patient and/or guardian regarding: the historical points, exam findings, and any diagnostic results supporting the discharge/admit diagnosis, lab results, radiology results, to return to the emergency department if symptoms worsen or persist or if there are any questions or concerns that arise at home. ED course: VSS. Patient reports symptoms improved with IV fluids and meds. Patient appears non-toxic and no signs of respiratory distress, oxygen sats 99% on room air. Will discharge to home for continued monitoring. 07/13 12:55 Order name: Basic Metabolic Panel; Complete Time: 14:33 cp 07/13 14:40 Interpretation: Normal except: K 3.3. cp 07/13 12:55 Order name: CBC with Diff; Complete Time: 14:39 cp 07/13 14:39 Interpretation: Normal except: MCV 96.4; MN% 16.1. cp 07/13 12:55 Order name: Hepatic Function; Complete Time: 14:33 cp 07/13 12:55 Order name: Lipase; Complete Time: 14:33 cp 07/13 12:56 Order name: CRP; Complete Time: 14:33 cp 07/13 12:56 Order name: Ferritin; Complete Time: 14:33 cp 07/13 12:55 Order name: XRAY Chest (1 view); Complete Time: 14:13 cp 07/13 12:57 Order name: Magnesium; Complete Time: 14:13 cp 07/13 12:57 Order name: D-Dimer; Complete Time: 13:54 cp 07/13 13:54 Interpretation: Abnormal: D-DIMER 1092. cp 07/13 13:48 Order name: Manual Differential; Complete Time: 14:39 EDMS 07/13 14:39 Interpretation: Normal except: MONO 13. cp 07/13 14:15 Order name: CT Chest For PE Angio; Complete Time: 16:30 cp 07/13 15:18 Order name: Urine Dipstick-Ancillary; Complete Time: 16:30 EDMS 07/13 15:18 Order name: Urine Dipstick-Ancillary EDMS 07/13 15:18 Order name: Urine --Ancillary (enter results); Complete Time: 16:30 eb 07/13 12:55 Order name: IV Saline Lock; Complete Time: 13:41 cp 07/13 12:55 Order name: Labs collected and sent; Complete Time: 13:41 cp 07/13 12:55 Order name: Urine Dipstick-Ancillary (obtain specimen); Complete Time: 15:13 cp 07/13 12:55 Order name: Urine Test (obtain specimen); Complete Time: 15:49 cp 07/13 12:57 Order name: EKG; Complete Time: 12:58 cp 07/13 12:57 Order name: EKG - Nurse/Tech; Complete Time: 16:38 cp 07/13 14:15 Order name: CT Abd/Pelvis - IV Contrast Only; Complete Time: 16:30 cp EC:33 Rate is 106 beats/min. Rhythm is regular. NM interval is normal. QRS interval is cp normal. QT interval is normal. Interpreted by me. Reviewed by me. Administered Medications: 15:13 Drug: NS 0.9% 1000 ml Route: IV; Rate: 1 bolus; Site: right hand; iw 15:14 Drug: Zofran (Ondansetron) 4 mg Route: IVP; Site: right wrist; iw 15:14 Drug: Pepcid (famotidine) 20 mg Route: IVP; Site: right wrist; iw 15:14 Drug: SOLU-Medrol (methylPrednisoLONE) 125 mg Route: IVP; Site: right wrist; iw 16:15 Drug: REGEN-COV Dose Pack 120 mg/mL-120 mg/mL (EUA) 260 ml Route: IV; Rate: calculated iw rate; Site: right wrist; 17:17 Drug: Potassium Effervescent Tablet 50 mEq Route: PO; iw 20:15 Not Given (Patient Refused): Tessalon Perle (benzonatate) 200 mg PO once iw 20:16 Not Given (Patient Refused): NS 0.9% 1000 ml IV at 1 bolus Per protocol; 1000 mL bolus iw Disposition: 07/14 07:46 Co-signature as Attending Physician, José Manuel Rg MD I agree with the assessment and lázaro plan of care. Disposition Summary: 07/13/21 17:40 Discharge Ordered Location: Home cp Problem: new cp Symptoms: have improved cp Condition: Stable cp Diagnosis - Other viral pneumonia cp - SARS-associated coronavirus as the cause of diseases classified elsewhere cp - Nausea cp Followup: cp - With: Private Physician - When: 2 - 3 days - Reason: Worsening of condition Discharge Instructions: - Discharge Summary Sheet cp - Nausea, Adult cp - Form - Excuse from Work, School, or Physical Activity cp - COVID-19 cp - Things to Know about the COVID-19 Pandemic - [facility] cp - 10 Things You Can Do to Manage Your COVID-19 Symptoms at Home - [facility] cp - COVID-19: Quarantine vs. Isolation - [facility] cp - Prevent the Spread of COVID-19 if You Are Sick - [facility] cp Forms: - Medication Reconciliation Form cp - Thank You Letter cp - Antibiotic Education cp - Prescription Opioid Use cp - Work release form eb Prescriptions: - albuterol sulfate 90 mcg/actuation Inhalation HFA aerosol inhaler - inhale 2 puff by INHALATION route every 4-6 hours As needed; 1 Inhaler; cp Refills: 0, Product Selection Permitted - Zofran 4 mg Oral Tablet - take 1 tablet by ORAL route every 12 hours As needed; 20 tablet; Refills: 0, cp Product Selection Permitted - Tessalon Perles 100 mg Oral Capsule - take 2 capsule by ORAL route every 8 hours As needed; 30 capsule; Refills: 0, cp Product Selection Permitted - Zithromax Z-Neftali 250 mg Oral Tablet - take 1 tablet by ORAL route as directed for 5 days Day 1 - take two (2) tablets cp one time. Day 2, 3, 4 , 5 take one (1) tablet once daily.; 6 tablet; Refills: 0, Product Selection Permitted - Prednisone 20 mg Oral Tablet - take 2 tablets by ORAL route once daily for 5 days; 10 tablet; Refills: 0, cp Product Selection Permitted Signatures: Dispatcher [employer] José Manuel Thorne MD MD cha Williams, Irene, RN RN José Manuel Trujillo PA PA cp
[2021-07-13 18:27] VITALS: BP 118/72; TEMP 99.2; O2SAT 99
== END 2021-07-13 18:19 | disposition home or self-care (01) ==
LOC: ER 11:44
DX: U07.1 COVID-19 (principal); J12.82 Pneumonia due to coronavirus disease 2019; R11.0 Nausea
CPT/HCPCS: 93005; 85025; 80048; 36415; 83735; 81025; 85379; 80076; 81003; 82728; 83690; 86140; 71275; 74177; 71045; 96375; 96374; 99284; Q9967; J7050; J7030; J2930; J2405

== ENCOUNTER 2023-01-02 15:13 | Emergency (ER) | payer BC ==
--- OUTSIDE RECORDS SUMMARY | 2023-01-02 15:40 | XMS REPORT | Continuity of Care Document ---
:1995 Author Organization [facility] t Address [address] [place] [address] Care Team Providers Name Role Phone Gabriel Brunson Vito Primary Care Physician NOE BOYCE Attending Clinician Unavailable NOE BOYCE Attending Clinician Unavailable Arabella Simmons MA Attending Clinician Unavailable Sincere Sharpe MD Attending Clinician Doctor Unassigned, [place] Attending Clinician Unavailable VU, RYAN DM Attending Clinician Unavailable SINCERE SHARPE Attending Clinician Unavailable Rubio Quinn MD Attending Clinician RUBIO QUINN Attending Clinician Unavailable RUBIO QUINN Attending Clinician Unavailable 2, [facility] Attending Clinician Unavailable Thuan Gamboa MD Attending Clinician THUAN GAMBOA Attending Clinician Unavailable Onesimo Saenz Attending Clinician HARSHA NICKERSON Attending Clinician Unavailable Harsha Nickerson MD Attending Clinician PARI FAULKNER Attending Clinician Unavailable ANDREA, RYAN DM Admitting Clinician Unavailable THUAN GAMBOA Admitting Clinician Unavailable HARSHA NICKERSON Admitting Clinician Unavailable PARI FAULKNER Admitting Clinician Unavailable Payers Payer Name Policy Type Policy Number Effective Date Expiration Date [place] [id number] PPO AND [id number] 2021 00:00:00 OUT OF STATE AETNA O [id number] 2014 00:00:00 Problems Condition Condition Condition Status Onset Resolution Last Treating Co mments Source Name Details Category Date Date Treatment Clinician Date Complicate Complicate Disease Active U nivers d migraine d migraine 3-19 it y of 00:00: [address] Branch Chronic Chronic Disease Active Univers migraine migraine 8 ity of without without 00:00: [place] aura aura 00 Medical without without Branch status status migrainosu migrainosu s, not s, not intractabl intractabl e e Possible Possible Disease [facility] Suspected Suspected Disease Active [facility] cerebrovas cerebrovas 8-13 [facility] k[facility] cular cular 00:00: Medical accident accident 00 Center (CVA) (CVA) Left-sided Left-sided Disease Active [facility] weakness weakness 8[facility]13 [facility] Anxiety Anxiety Disease [facility] Numbness Numbness Disease [facility] tingling tingling 00:00: Medica l in left in left 00 Center upper upper extremity extremity Left hip Left hip Disease Active 2014-11 Unive rs pain pain 1-05 ity of 00:00: [address] Allergies, Adverse Reactions, Alerts Allergy Allergy Status Severity Reaction(s) Onset Inactive Treating Comm ents Source Name Type Date Date Clinician NO KNOWN Drug Active Univers ALLERGIE Class ity of S [facility] Family History Family Member Diagnosis Comments Start Date Stop Date Source Natural brother Hearing loss [facility] Natural father Diabetes [facility] Natural father Hyperlipidemia [facility] Natural father Hypertension [facility] Maternal aunt [facility] Maternal grandfather Cancer [facility] Maternal grandmother Cancer [facility] Maternal grandmother Stroke [facility] Paternal grandmother Diabetes [facility] Paternal grandmother Stroke [facility] Social History Social Habit Start Date Stop Date Quantity Comments Source History SDOH [facility] Alcohol Frequency [facility] History SDOH [facility] Alcohol Std Drinks Medica l Center History SDOH [facility] Alcohol Binge Medical Asuncion ter Exposure to 2022-07-27 2022-08-[address] [facility] SARS-CoV-2 (event) 00:00:00 13:43:00 Alcohol Comment 2018-07-03 2018-07-[address] [facility] 00:00[facility]00 [facility]00 [facility] Tobacco use and 2018-07-03 2018-07-[address] [facility] exposure 00:00:00 00:00:00 Medical Center Alcohol intake 2018-07-03 2018-07-03 [facility]00 [facility] alcohol [facility] Center (finding) Sex Assigned At [address] [facility] 00:00:00 00:00:00 [facility] Center Smoking Status Start Date Stop Date Source Tobacco smoking consumption unknown [facility] Never smoked tobacco [facility] Medications Ordered Filled Start Stop Current Ordering Indication Dosage Frequency Signature Comments Components Source Medication Medication Date Date Medication? Clinician (SIG) Name Name Earline 60 Yes [facility] tablet 07-29 [facility] 00:00: 00 Ubrelvy 100 Yes if needed. [facility] tablet 07-06 Health 00:00: 00 aspirin 325 2021- Yes 325mg QD Take 325 U T MG EC 3-31 mg by Health tablet 00:00: mouth 1 00 (one) time each day. amitriptyli Yes [id number] 10mg Take 1 Univers ne 10 mg 3-18 tablet by ity of tablet 00:00: mouth at [place] [address] bedtime. Medical Branch amitriptyli Yes [id number] 10mg Take 1 Univers ne 10 mg 3-18 tablet by ity of tablet 00:00: mouth at [place] [address] bedtime. Medical Branch amitriptyli Yes [id number] 10mg Take 1 Univers ne 10 mg 3-18 tablet by ity of tablet 00:00: mouth at [place] [address] bedtime. Medical Branch amitriptyli 2022-0 Yes [id number] 10mg Take 1 Univers ne 10 mg 3-18 tablet by ity of tablet 00:00: mouth at [place] 00 bedtime. Medical Branch topiramate 2020-0 Yes [id number] 25mg Take 1 Univers 25 mg 8-06 tablet by ity of tablet 00:00: mouth [place] 00 daily. Medical Branch topiramate 2020-0 Yes [id number] 25mg Take 1 Univers 25 mg 8-06 tablet by ity of tablet 00:00: mouth [place] 00 daily. Medical Branch topiramate 2020-0 Yes [id number] 25mg Take 1 Univers 25 mg 8-06 tablet by ity of tablet 00:00: mouth [place] 00 daily. Medical Branch topiramate 2020-0 Yes [id number] 25mg Take 1 Univers 25 mg 8-06 tablet by ity of tablet 00:00: mouth [place] 00 daily. Medical Branch dicyclomine 2020-1 Yes [id number] 20mg Take 1 Univers 20 mg 0-11 tablet by ity of tablet 00:00: mouth 4 00 (four) Medical times Branch daily as needed for Abdominal pain. proMETHazin 2020-1 Yes [id number] 25mg Take 1 Univers e 25 mg 0-11 tablet by ity of tablet 00:00: mouth [place] 00 every 6 Medical (six) Branch hours as needed for Nausea and Vomiting (N/V). dicyclomine 2020-1 Yes [id number] 20mg Take 1 Univers 20 mg 0-11 tablet by ity of tablet 00:00: mouth 4 [place] 00 (four) Medical times Branch daily as needed for Abdominal pain. proMETHazin 2020-1 Yes [id number] 25mg Take 1 Univers e 25 mg 0-11 tablet by ity of tablet 00:00: mouth [place] 00 every 6 Medical (six) Branch hours as needed for Nausea and Vomiting (N/V). dicyclomine 2020-1 Yes [id number] 20mg Take 1 Univers 20 mg 0-11 tablet by ity of tablet 00:00: mouth 4 [place] 00 (four) Medical times Branch daily as needed for Abdominal pain. proMETHazin 2020-1 Yes [id number] 25mg Take 1 Univers e 25 mg 0-11 tablet by ity of tablet 00:00: mouth [place] 00 every 6 Medical (six) Branch hours as needed for Nausea and Vomiting (N/V). dicyclomine 2020-1 Yes [id number] 20mg Take 1 Univers 20 mg 0-11 tablet by ity of tablet 00:00: mouth 4 [place] 00 (four) Medical times Branch daily as needed for Abdominal pain. proMETHazin 2019-11 Yes [id number] 25mg Take 1 Univers e 25 mg 0-11 tablet by ity of tablet 00:00: mouth [place] 00 every 6 Medical (six) Branch hours as needed for Nausea and Vomiting (N/V). escitalopra Yes 10mg QD Take [address] [facility] oxalate 8-14 by mouth [facility] (LEXAPRO) 16:12: daily. Medica l 10 MG 57 Center tablet escitalopra Yes 10mg QD Take [address] [facility] oxalate 8-14 by mouth [facility] (LEXAPRO) 16:12: daily. Medica l 10 MG 57 Center tablet escitalopra Yes 10mg QD Take [address] [facility] oxalate 8-14 by mouth [facility] (LEXAPRO) 16:12: daily. Medica l 10 MG 57 Center tablet Vital Signs Vital Name Observation Time Observation Value Comments Source Systolic blood 2022-08-06 18:56:00 134 mm[Hg] [facility] Diastolic blood 2022-08-06 18:56:00 86 mm[Hg] [facility] Heart rate 2022-08-06 18:56:00 58 /min [facility] Body temperature 2022-08-06 18:56:00 36.28 [facility] Body height 2022-08-06 18:56:00 154.9 cm [facility] Body weight 2022-08-06 18:56:00 67.677 kg [facility] BMI 2022-08-06 18:56:00 28.19 kg/m2 [facility] Systolic blood 2022-02-06 19:58:00 124 mm[Hg] Univer s[facility] [place] [facility] Diastolic blood 2022-02-06 19:58:00 81 mm[Hg] [facility] rate 2022-02-06 19:58:00 106 /min [facility] Body temperature 2022-02-06 19:58:00 36.11 Carola [facility] Res[facility] rate 2022-02-06 19:58:00 16 /min [facility] Body height 2022-02-06 19:58:00 154.9 cm [facility] Body weight 2022-02-06 19:58:00 72.576 kg [facility] BMI 2022-02-06 19:58:00 30.23 kg/m2 [facility] Procedures Procedure Date / Time Performing Clinician Source Performed AUTHORIZATION FOR 2022-06-04 05:01:00 Doctor Unassigned, No [facility] RELEASE OF PHI Name [facility] Plan of Care Planned Activity Planned Date Details Comments Source Future Scheduled 2020-07-[address] [facility] Test 00:00:00 (#1) [code = [facility] INFLUENZA VACCINE (#1)] Future Scheduled [address] [facility] Test 00:00:00 malignant neoplasm Medical C enter of cervix (procedure) [code = 893471004] Encounters Start End Encounter Admission Attending Care Care Encounter Source Date/Time Date/Time Type Type Clinicians Facility Department ID 2022-08-21 2022-08-21 Outpatient [id number] 07:53:00 13:30:00 NOE l [facility] 2022-08-06 2022-08-06 Office CARLI [facility] [id number] [place] 14:30:00 14:30:00 Visit [id number] [facility] 9.2.7.2.686 [id number] 2022-07-02 2022-07-02 Telephone Arabella Simmons [facility] 1.2.840.114 [id number] [place] 00:00:00 00:00:00 Arabella Simmons MEM [id number] [facility] TOWER 9.2.7.2.686 [id number] 2022-06-30 2022-06-30 Telephone Carli [facility] [id number] [place] [facility]:00[id number] 9.2.7.2.686 [id number] 2022-06-04 2022-06-04 Telephone MICHELLE Sharpe [id number] Univers 00:00:00 00:00:00 Sincere Y HEALTH [id number] i ty of [place] [id number] [address] 2022-06-04 2022-06-04 Orders Doctor VITO 1.2.840.114 [id number] Univers 00:00:00 00:00:00 Only Unassigned, BETSEY [id number] ity of Avinger [facility] 4.2.7.2.686 Adriano as [phone] [place] [address] Branch 2022-02-14 2022-02-19 Inpatient E RYAN MENDEZ [facility] [id number] [facility] 13:20:00 11:40:00 l [facility] 2022-02-06 2022-02-06 Office ROGER Sharpe 1.2.840.114 [id number] Univers 16:30:00 17:00:00 Visit Sincere Y HEALTH [id number] i ty [place] [id number] [address] 2022-02-06 2022-02-06 Outpatient R DELL, [facility] [id number] Univers 16:30:00 16:30:00 SINCERE ity [facility] 2021-06-27 2021-06-27 Office ROGER Sharpe 1.2.840.114 [id number] Univers 14:01:41 15:01:41 Visit Sincere Y HEALTH [id number] i ty [place] [id number] [address] 2021-06-27 2021-06-27 Office Dlel, MICHELLEIT 1.2.840.114 [id number] 14:01:41 15:01:41 Visit Sincere Y HEALTH [id number] CLINICS 4.2.7.2.686 [id number] formerly [facility] 2021-06-27 2021-06-27 Outpatient R DELL, [facility] [id number] Univers 14:00:00 14:00:00 SINCERE alda [facility] 2021-06-11 2021-06-11 Telephone [place] [facility] 1.2.840.114 [id number] Univers 00:00:00 00:00:00 Rubio Jorgeton 350.1.13.10 ity [place] Profess[place] [id number] [address] 2021-06-10 2021-06-10 Telephone [place] [facility] 1.2.840.114 [id number] Univers 00:00:00 00:00:00 Rubio Yohan Creighton 350.1.13.10 [place]y [place] [id number] [address] 2021-06-06 2021-06-06 Outpatient RUBIO SHAH [facility] [id number] Univers 10:40:00 10:40:00 RUBIO QUINN alda [facility] 2021-05-22 2021-05-22 [place] [facility] 1.2.840.114 [id number] Univers 00:00:00 00:00:00 Rubio Yohan Frankie 350.1.13.10 [place] 4[place] [id number] [address] 2021-05-15 2021-05-15 Outpatient RUBIO SHAH [facility] [id number] Univers 15:00:00 15:00:00 RUBIO QUINNshelby [facility] 2021-05-01 2021-05-01 [facility] [place] [facility] [id number] Univers 16:31:30 23:59:00 [facility] Rubio Almanzar [facility] [id number] [place]y [place] [id number] [facility] 804 Branch ([facility]) 2021-05-01 2021-05-01 Outpatient RUBIO SHAH [facility] [id number] Univers 17:00:00 17:00:00 RUBIO QUINN [facility] 2021-04-18 2021-04-18 Office [place] [facility] 1.2.840.114 [id number] Univers 09:48:44 12:05:55 Visit Rubio Jorgeton 350.1.13.10 ity [place] [phone] In dical nal 092 [facility] 2021-04-18 2021-04-18 Seals Engraver 2, Adc Lab [facility] 1.2.840.114 [id number] Univers 11:10:31 11:25:31 Visit Rubio Quinn 350.1.13 .10 ity [place] [id number] In dical nal 353 [facility] 2021-04-18 2021-04-18 Outpatient R RUBIO QUINN [facility] [id number] Univers 10:00:00 10:00:00 RUBIO QUINN [facility] 2021-04-18 2021-04-18 Orders Doctor VITO 1.2.840.114 [id number] Univers 00:00:00 00:00:00 Only Unassigned, BETSEY 350.1.13.10 ity of [place] [facility] 4.2.7.2.686 Adriano as [id number] [facility] 009 Branch 2021-04-04 2021-04-04 Emergency Cooper [facility] [id number] Univers 14:27:00 17:11:00 Thuan David 350.1.13.10 i ty [place] [id number] [facility] 084 Branch 2021-04-04 2021-04-04 Emergency X COOPER [facility] ERT [id number] Univers 14:27:00 17:11:00 THUAN lizama [facility] 2021-04-04 2021-04-04 Emergency X COOPER [facility] ERT [id number] Univers 14:27:00 14:27:00 THUAN lizama [facility] 2020-09-01 2020-09-01 Emergency Bryant, [facility] [id number] Univers 15:22:00 19:27:00 Onesimo David 350.1.13.10 i ty of [place] 4.2.7.2.686 [facility] [id number] [address] 2020-09-01 2020-09-01 Emergency X [facility] ERT [id number] Univers 15:08:00 15:08:00 ity [facility] 2020-09-01 2020-09-01 Orders Doctor VITO 1.2.840.114 [id number] Univers 00:00:00 00:00:00 Only Unassigned, BETSEY 350.1.13.10 ity of [place] [id number] [facility] [id number] [place] [address] Branch 2019-11-12 2019-11-12 Emergency [facility] [id number] Univers 14:23:40 18:29:00 HARSHA shelby [facility] 2019-08-12 2019-08-12 [facility] [id number] Univers 01:50:40 03:36:00 Harsha David 350.1.13.10 i ty [facility] 4.2.7.[address] [place] [id number] Results Test Description Test Time Test Comments Results Result Sour e Comments MR, BRAIN, 2018-07-04 FINAL REPORT PATIENT ID: WITHOUT CONTRAST 20:33:00 [id number] MRI Brain without contrast Clinical History: HemiplegiaPresents [...] hydrocephalus. Scattered nonspecific white matter disease. Signed: Brady, Rose Mary MDReport Verified Date/Time: 07/04/2018 20:33:32 Reading Location: [facility] Radiology Reading Room D DRUG SCREEN, URINE [...] situations. Chain of custody not maintained. Some [id number]-jtarynm medications, as well as adulterants, may cause inaccurate results. Clinical correlation should be applied. A more comprehensive drug screen or confirmation of a detected drug may be performed upon request. HEMOGLOBIN [id number] 14:46:00 Test Item Value Reference Range Interpretation Comments HEMOGLOBIN A1C (BEAKER) (test code = 4.9 % 4.3-6.1 368) [id number] 05:45:00 Test Item Value Reference Range Interpretation Comments RPR SCREEN (BEAKER) (test code = Nonreactive Nonreactive 420) VITAMIN [id number] 03:52:00 Test Item Value Reference Range Interpretation Comments VITAMIN B12 (BEAKER) (test code = 348 pg/mL 213-816 774) TSH/FREE T4 IF [id number] 03:52:00 Test Item Value Reference Range Interpretation Comments THYROID STIMULATING HORMONE 1.95 uIU/mL 0.35-4.94 (BEAKER) (test code = 772) [id number] 03:23:00 Test Item Value Reference Range Interpretation Comments MAGNESIUM (BEAKER) (test code = 2.0 mg/dL 1.6-2.6 627) BASIC METABOLIC [id number] 03:23:00 Test Item Value Reference Range Interpretation [...] NOT APPLICABLE FOR DIALYSIS PATIEN TS. LIPID [id number] 03:23:00 Test Item Value Reference Range Interpretation Comments TRIGLYCERIDES (BEAKER) (test code = 41 mg/dL 540) CHOLESTEROL (BEAKER) (test code = 147 mg/dL 631) HDL CHOLESTEROL (BEAKER) (test code 59 mg/dL = 976) LDL CHOLESTEROL CALCULATED (BEAKER) 80 mg/dL (test code = 633) Triglyceride Reference Range: Low Risk <150 Borderline 150-199 High Risk 200- 499 Very High Risk >=500Cholesterol Reference Range: Low Risk <200 Borderline 200-239 High Risk >240HDL Cholesterol Reference Range: Low Risk >=60 High Risk <40LDL Cholesterol Reference Range: Optimal <100 Near Optimal 100-129 Borderline 130-159 High 160-189 Very High >=190HEPATIC FUNCTION [id number] 03:23:00 Test Item Value Reference Range Interpretation [...] 115 U/L 29-200 code = 380) C-REACTIVE [id number] 03:23:00 Test Item Value Reference Range Interpretation Comments C-REACTIVE PROTEIN (BEAKER) (test 0.14 mg/dL 0.00-0.50 code = 676) CBC W/PLT COUNT & AUTO [id number] 03:16:00 Test Item Value Reference Range Interpretation [...] % 0-1 PERCENT (BEAKER) (test code = 0621)
[2023-01-02] MEDS ORDERED: KETOROLAC 30 MG/ML INJ ONE (16:10)
[2023-01-02 16:32] LABS: SARS-CoV-2 Antigen Rapid Res Negative (Negative)
--- NOTE | 2023-01-02 16:41 | EDPHYS ---
Physician Documentation [facility] Name: Crys Tovar Age: 27 yrs Sex: Female : 1995 Arrival Date: 01/02/2023 Time: 15:17 Bed 7 Private MD: HAWK Physician José Manuel Rg HPI: 01/02 16:04 This 27 yrs old Female presents to ER via Ambulatory with complaints of Neck snw Pain, <24hrs Old, Jaw Pain. 16:04 The patient or guardian complains of pain, that is acute. The symptoms are located on snw the right submandibular area and right sternocleidomastoid. Onset: The symptoms/episode began/occurred acutely, 3 day(s) ago, and became persistent. Context: The problem was sustained at home, The neck injury/problem resulted from from unknown cause. Associated signs and symptoms: Pertinent positives: mild sore throat yesterday. Severity of symptoms: At their worst the symptoms were moderate. pt with hx of Posterior Left CVA s/p chiropractic manipulation. Historical: - Allergies: 15:55 No Known Allergies; ss - PMHx: 15:55 Anxiety; Vertigo; migraines; ss - PSHx: 15:55 Tonsillectomy; ss - Immunization history:: Client reports having NOT received the Covid vaccine. - Social history:: Smoking status: Patient denies any tobacco usage or history of. ROS: 16:05 Constitutional: Negative for fever, chills, and weight loss, Eyes: Negative for injury, snw pain, redness, and discharge, ENT: Negative for injury, pain, and discharge, Cardiovascular: Negative for chest pain, palpitations, and edema, Respiratory: Negative for shortness of breath, cough, wheezing, and pleuritic chest pain, Abdomen/GI: Negative for abdominal pain, nausea, vomiting, diarrhea, and constipation, Back: Negative for injury and pain, : Negative for injury, bleeding, discharge, and swelling, MS/Extremity: Negative for injury and deformity, Skin: Negative for injury, rash, and discoloration, Neuro: Negative for headache, weakness, numbness, tingling, and seizure, Psych: Negative for depression, anxiety, suicide ideation, homicidal ideation, and hallucinations. 16:05 Neck: Positive for tenderness, of the right sternocleidomastoid and right submandibular area. Exam: 16:01 Constitutional: This is a well developed, well nourished patient who is awake, alert, snw and in no acute distress. Head/Face: Normocephalic, atraumatic. Eyes: Pupils equal round and reactive to light, extra-ocular motions intact. Lids and lashes normal. Conjunctiva and sclera are non-icteric and not injected. Cornea within normal limits. Periorbital areas with no swelling, redness, or edema. ENT: Nares patent. No nasal discharge, no septal abnormalities noted. Tympanic membranes are normal and external auditory canals are clear. Oropharynx with no redness, swelling, or masses, exudates, or evidence of obstruction, uvula midline. Mucous membranes moist. Chest/axilla: Normal chest wall appearance and motion. Nontender with no deformity. No lesions are appreciated. Cardiovascular: Regular rate and rhythm with a normal S1 and S2. No gallops, murmurs, or rubs. Normal PMI, no JVD. No pulse deficits. Respiratory: Lungs have equal breath sounds bilaterally, clear to auscultation and percussion. No rales, rhonchi or wheezes noted. No increased work of breathing, no retractions or nasal flaring. Abdomen/GI: Soft, non-tender, with normal bowel sounds. No distension or tympany. No guarding or rebound. No evidence of tenderness throughout. Back: No spinal tenderness. No costovertebral tenderness. Full range of motion. Skin: Warm, dry with normal turgor. Normal color with no rashes, no lesions, and no evidence of cellulitis. MS/ Extremity: Pulses equal, no cyanosis. Neurovascular intact. Full, normal range of motion. Neuro: Awake and alert, GCS 15, oriented to person, place, time, and situation. Cranial nerves II-XII grossly intact. Motor strength 5/5 in all extremities. Sensory grossly intact. Cerebellar exam normal. Normal gait. 16:01 Neck: External neck: is normal, ROM/movement: is normal, Lymph nodes: no appreciated lymphadenopathy. Vital Signs: 15:41 BP 118 / 79; Pulse 108; Resp 14; Temp 99.3(O); Pulse Ox 100% on R/A; Weight 65.77 kg; ss Height 5 ft. 11 in. (180.34 cm); Pain 05/01; 15:41 Body Mass Index 20.22 (65.77 kg, 180.34 cm) ss MDM: 16:00 Patient medically screened. snw 16:38 Differential diagnosis: Cervical Disc Herniation Cervical Facet Syndrome Cervical snw Raiculopathy Cervical Spondylosis cervical strain, torticollis, strep. Data reviewed: vital signs, nurses notes, lab test result(s). External Records Reviewed: CT angio neck reviewed from June visit. Counseling: I had a detailed discussion with the patient and/or guardian regarding: the historical points, exam findings, and any diagnostic results supporting the discharge/admit diagnosis, lab results, the need for outpatient follow up, for definitive care, to return to the emergency department if symptoms worsen or persist or if there are any questions or concerns that arise at home. Response to treatment: the patient's symptoms have mildly improved after treatment. Special discussion: Based on the history and exam findings, there is no indication for further emergent testing or inpatient evaluation. I discussed with the patient/guardian the need to see the primary care provider for further evaluation of the symptoms. 01/02 15:55 Order name: Strep; Complete Time: 16:35 snw 01/02 16:00 Order name: SARS RAPID; Complete Time: 16:34 snw 01/02 16:38 Order name: Throat Culture EDMS Administered Medications: 16:10 Drug: Ketorolac 30 mg Route: IM; Site: left deltoid; hb Disposition Summary: 01/02/23 16:41 Discharge Ordered Location: Home snw Condition: Stable snw Diagnosis - Cervicalgia snw - Spasmodic torticollis snw Followup: snw - With: Emergency Department - When: As needed - Reason: Worsening of condition Followup: snw - With: Private Physician - When: 2 - 3 days - Reason: Recheck today's complaints, Continuance of care, Re-evaluation by your physician Discharge Instructions: - Discharge Summary Sheet snw - Musculoskeletal Pain snw - Acute Torticollis, Adult snw - Heat Therapy snw Forms: - Medication Reconciliation Form snw - Thank You Letter snw - Antibiotic Education snw - Prescription Opioid Use snw Prescriptions: - orphenadrine citrate 100 mg Oral Tablet Sustained Release - take 1 tablet by ORAL route 2 times per day As needed; 20 tablet; Refills: 0, snw Product Selection Permitted Signatures: Dispatcher [employer] EDMS Estefania Patel, PUMP INSTALLATION AND SERVICER-C PUMP INSTALLATION AND SERVICER-Csnw Zoila Rubalcava, RN RN ss Mariana Mulligan, RN RN hb
--- NOTE | 2023-01-02 16:41 | ER ---
Nurse's Notes [facility] Name: Crys Tovar Age: 27 yrs Sex: Female : 1995 Arrival Date: 01/02/2023 Time: 15:17 Bed 7 Private MD: Diagnosis: Cervicalgia;Spasmodic torticollis Presentation: 01/02 15:41 Chief complaint: Patient states: R sided neck pain, "like my vein is being distended." ss Pt reports she first noticed the discomfort 5 days ago, and it seems to be getting worse. Coronavirus screen: Client denies travel out of the [place] in the last 14 days. Ebola Screen: Patient denies exposure to infectious person. Patient denies travel to an Ebola-affected area in the 21 days before illness onset. Initial Sepsis Screen: Does the patient meet any 2 criteria? No. Patient's initial sepsis screen is negative. Does the patient have a suspected source of infection? No. Patient's initial sepsis screen is negative. Risk Assessment: Do you want to hurt yourself or someone else? Patient reports no desire to harm self or others. Onset of symptoms was December 28, 2022. 15:41 Method Of Arrival: Ambulatory ss 15:41 Acuity: DEB 3 ss Historical: - Allergies: 15:55 No Known Allergies; ss - PMHx: 15:55 Anxiety; Vertigo; migraines; ss - PSHx: 15:55 Tonsillectomy; ss - Immunization history:: Client reports having NOT received the Covid vaccine. - Social history:: Smoking status: Patient denies any tobacco usage or history of. Screenin:22 [facility] ED Fall Risk Assessment (Adult) Score/Fall Risk Level 0 - 2 = Low Risk hb Oriented to surroundings, Maintained a safe environment, Educated pt \\T\\ family on fall prevention, incl call for assistance when getting out of bed. Abuse screen: Denies threats or abuse. Denies injuries from another. Nutritional screening: No deficits noted. Tuberculosis screening: No symptoms or risk factors identified. Assessment: 16:21 General: Appears in no apparent distress. Behavior is calm, cooperative. Pain: Pain hb currently is 6 out of 10 on a pain scale. Neuro: Level of Consciousness is awake, alert, obeys commands, Oriented to person, place, time, situation. Cardiovascular: Patient's skin is warm and dry. Respiratory: Respiratory effort is even, unlabored, Respiratory pattern is regular, symmetrical. GI: No signs and/or symptoms were reported involving the gastrointestinal system. : No signs and/or symptoms were reported regarding the genitourinary system. EENT: No signs and/or symptoms were reported regarding the EENT system. Derm: Skin is pink, warm \\T\\ dry. Musculoskeletal: Reports left neck pain. Vital Signs: 15:41 BP 118 / 79; Pulse 108; Resp 14; Temp 99.3(O); Pulse Ox 100% on R/A; Weight 65.77 kg; ss Height 5 ft. 11 in. (180.34 cm); Pain 6/10; 15:41 Body Mass Index 20.22 (65.77 kg, 180.34 cm) ss ED Course: 15:17 Patient arrived in ED. rg4 15:41 Estef[facility] Patel [facility]-C [facility]. snw 15:41 José Manuel Rg MD is Attending Physician. snw 15:43 Triage completed. ss 15:55 Arm band placed on right wrist. ss 15:58 Mariana Mulligan, RN is Primary Nurse. hb 16:22 Patient has correct armband on for positive identification. hb 17:01 No provider procedures requiring assistance completed. Patient did not have IV access hb during this emergency room visit. Administered Medications: 16:10 Drug: Ketorolac 30 mg Route: IM; Site: left deltoid; hb Medication: 16:22 VIS not applicable for this client. hb Outcome: 16:41 Discharge ordered by . snw 17:01 Discharged to home ambulatory. hb 17:01 Condition: stable 17:01 Discharge instructions given to patient, Instructed on discharge instructions, follow up and referral plans. medication usage, Demonstrated understanding of instructions, follow-up care, medications, Prescriptions given X 1. 17:01 Patient left the ED. hb Signatures: Estefania Patel FNP-C FNP-Zoila Gonzalez RN RN Mariana Mulligan, RN RN Ayanna Mike rg4
[2023-01-02 17:06] VITALS: BP 118/79; TEMP 99.3; O2SAT 100
== END 2023-01-02 17:01 | disposition home or self-care (01) ==
LOC: ER 15:13
DX: G24.3 Spasmodic torticollis (principal); Z20.822 Contact with and (suspected) exposure to COVID-19
CPT/HCPCS: 36415; 87070; 87081; 87811; 96372; 99283

== ENCOUNTER → 2023-11-29 | Emergency (ER) | payer SELFPAY ==
[~2023-11-29] MED LIST: CYCLOBENZAPRINE 10 MG TAB ONE; DIAZEPAM 10 MG/2 ML INJ SYRINGE ONE; KETOROLAC 30 MG/ML INJ ONE; ONDANSETRON 4 MG/2 ML VIAL ONE
--- NOTE | 2023-11-29 18:31 | RAD REPORT ---
EXAM DESCRIPTION: [place] Single View11/29/2023 5:41 pm CLINICAL HISTORY: CHEST PAIN COMPARISON: Chest Single View dated 07/13/2021; Chest Pa And Lat (2 Views) dated 08/19/2018; Chest Sin gle View dated 07/03/2018; CHEST PA AND LAT 2 VIEW dated 11/29/2011 TECHNIQUE: Portable AP view of the chest. FINDINGS: The lungs are clear. No pneumothorax or effusion. The cardiomediastinal contours are unre markable. IMPRESSION: No acute cardiopulmonary process.
[2023-11-29 18:43] LABS: Absolute Lymphocytes (CBC) 2.7 K/uL (0.7-4.9); Hematocrit 44.7 % (36.0-45.0); Lymphocytes % 34.1 % (15.3-44.8); MCV 100.7 fL (80-100); MPV 8.9 fL (7.6-11.3); Platelets 283 thou/uL (152-406); RBC Red Blood Cell Count 4.44 M/uL (3.86-4.86)
[2023-11-29 18:55] LABS: Protime INR 1.02
[2023-11-29 19:04] LABS: ALT/SGPT 29 U/L (13-56); AST/SGOT 13 U/L (15-37); Albumin 4.2 g/dL (3.4-5.0); Alkaline Phosphatase 137 U/L (45-117); BUN Blood Urea Nitrogen 16 mg/dL (7-18); Bicarbonate 27 mEq/L (21-32); Bilirubin Total 0.2 mg/dL (0.2-1.0); Glomerular Filtration Rate 94 ml/min (=/>90); Glucose Level 72 mg/dL (74-106); Magnesium 2.2 mg/dL (1.6-2.4); Potassium 3.7 mEq/L (3.5-5.1); Protein, Total 8.5 g/dL (6.4-8.2); Sodium Level 137 mEq/L (136-145)
--- NOTE | 2023-11-29 19:08 | RAD REPORT ---
EXAM DESCRIPTION: CT - Head Brain Wo Cont - 11/29/2023 6:34 pm CLINICAL HISTORY: cp h/o cva COMPARISON: Head Brain Wo Cont dated 07/03/2018; Head angio dated 07/03/2018 TECHNIQUE: Noncontrast head CT images were obtained without IV contrast. Multiplanar reformats were generated and reviewed. All CT scans are performed using dose optimization technique as appropriate and may include automated exposure control or mA/KV adjustment according to patient size. FINDINGS: No intracranial hemorrhage, mass, or edema. Midline structures are unremarkable. Normal ventricular caliber for age. Cordero-white matter differentiation is preserved, without evidence of acute infarct. No abnormal extra- axial fluid collections. Mastoid air cells and visualized portions of the paranasal sinuses are clear. No acute bony findings. IMPRESSION: No evidence of an acute intracranial process.
[2023-11-29 19:10] LABS: Bilirubin Direct < 0.1 mg/dL (0-0.2); Bilirubin Indirect, Calculated ND mg/dL (0.2-0.8); Troponin High Sensitivity < 3.0 pg/mL (<58.9)
--- NOTE | 2023-11-29 21:18 | ER ---
Nurse's Notes [facility] Name: Crys Tovar Age: 28 yrs Sex: Female : 1995 Arrival Date: 11/29/2023 Time: 17:09 Bed Treatment Private MD: Diagnosis: Myalgia Presentation: 11/29 17:24 Chief complaint: Patient states: SPONTANEOUS NECK AND BACK PAIN WITH SUBSTERNAL CP. bp Coronavirus screen: At this time, the client does not indicate any symptoms associated with coronavirus-19. Ebola Screen: No symptoms or risks identified at this time. Initial Sepsis Screen: Does the patient meet any 2 criteria? No. Patient's initial sepsis screen is negative. Does the patient have a suspected source of infection? No. Patient's initial sepsis screen is negative. Risk Assessment: Do you want to hurt yourself or someone else? Patient reports no desire to harm self or others. Onset of symptoms is unknown. 17:24 Method Of Arrival: Ambulatory bp 17:24 Acuity: DEB 3 bp Triage Assessment: 17:24 General: Appears in no apparent distress. uncomfortable, Behavior is calm, cooperative, bp appropriate for age. Pain: Complains of pain in back. Cardiovascular: Reports chest pain. [place] MAN: 23:09 LMP 10/2023, unknown tl4 Historical: - Allergies: 17:24 No Known Allergies; bp - PMHx: 17:24 Anxiety; Migraines; Vertigo; Cerebrovascular accident; bp - PSHx: 17:24 Tonsillectomy; bp - Immunization history:: Adult Immunizations unknown. - Social history:: Smoking status: unknown. Screenin:54 [facility] ED Fall Risk Assessment (Adult) History of falling in the last 3 months, tl4 including since admission No falls in past 3 months (0 pts) Confusion or Disorientation No (0 pts) Intoxicated or Sedated No (0 pts) Impaired Gait No (0 pts) Mobility Assist Device Used No (0 pt) Altered Elimination No (0 pt) Score/Fall Risk Level 0 - 2 = Low Risk Oriented to surroundings, Maintained a safe environment, Educated pt \T\ family on fall prevention, incl call for assistance when getting out of bed, Assessed \T\ reinforced patient's understanding of fall precautions, Provided non-skid footwear. Abuse screen: Denies threats or abuse. Denies injuries from another. Nutritional screening: No deficits noted. Tuberculosis screening: No symptoms or risk factors identified. Assessment: 19:52 Pain: Complains of pain in back and chest Pain does not radiate. Pain began suddenly. tl4 Vital Signs: 17:24 BP 128 / 87; Pulse 100; Resp 16; Temp 98; Pulse Ox 100% ; bp 19:53 BP 101 / 65; Pulse 85; Resp 16; Pulse Ox 99% on R/A; tl4 20:11 BP 102 / 69; Pulse 92; Resp 16; Pulse Ox 99% ; tl4 23:02 BP 111 / 78; Pulse 88; Resp 18; Pulse Ox 100% on R/A; Pain 5/10; tl4 23:02 Pain Scale: Adult tl4 Vitals: 19:53 Cardiac Rhythm Assessment Regular Sinus rhythm. tl4 [place] Coma Score: 19:53 Eye Response: spontaneous(4). Motor Response: obeys commands(6). Verbal Response: tl4 oriented(5). Total: 15. ED Course: 17:12 Patient arrived in ED. mr 17:16 Mary Valentin PA-C is PHCP. sb4 17:16 Gilda Amaya MD is Attending Physician. sb4 17:24 Arm band placed on. bp 17:25 Triage completed. bp 17:43 XRAY Chest (1 view) In Process Unspecified. EDMS 18:31 Initial lab(s) drawn, by me, sent to lab. Inserted saline lock: 22 gauge in left iw antecubital area, using aseptic technique. Blood collected. Patient maintains SpO2 saturation greater than 95% on room air. 18:36 Head Brain Wo Cont CT In Process Unspecified. EDMS 18:38 Wero Swenson is Primary Nurse. tl4 19:26 Radiology exam delayed due to test not completed at this time. nj 19:54 Patient has correct armband on for positive identification. Placed in gown. Bed in low tl4 position. Call light in reach. Side rails up X2. Adult w/ patient. Provided Education on: ED process. Client placed on continuous cardiac and pulse oximetry monitoring. NIBP monitoring applied. child monitor on. Door closed. Noise minimized. Lights dimmed. Moved to private room. Warm blanket given. 19:55 No provider procedures requiring assistance completed. tl4 20:48 CT Chest For PE Angio In Process Unspecified. EDMS 23:07 IV discontinued, intact, bleeding controlled, No redness/swelling at site. Pressure tl4 dressing applied. Administered Medications: 20:11 Drug: Ketorolac IVP 30 mg IVP once Route: IVP; Infused Over: 2 mins; Site: left tl4 antecubital; 21:16 Follow up: Response: Pain is decreased tl4 21:55 Drug: Diazepam IVP 5 mg IVP once Route: IVP; Infused Over: 2 mins; Site: left tl4 antecubital; 22:38 Follow up: Response: No adverse reaction; Pain is decreased tl4 21:55 Drug: Cyclobenzaprine PO 10 mg PO once Route: PO; tl4 22:37 Follow up: Response: Pain is decreased tl4 21:55 Drug: Ondansetron IVP 4 mg IVP once; over 2 minutes Route: IVP; Infused Over: 2 mins; tl4 Site: left antecubital; 22:37 Follow up: Response: No adverse reaction tl4 Medication: 19:54 VIS not applicable for this client. tl4 Outcome: 21:17 Discharge ordered by . sb4 23:07 Discharged to home ambulatory, with family, tl4 23:07 Condition: stable 23:07 Discharge instructions given to patient, Instructed on discharge instructions, follow up and referral plans. medication usage, Demonstrated understanding of instructions, follow-up care, medications, 23:10 Patient left the ED. tl4 Signatures: Dispatcher [employer] EDAK Chantal Santiago, Reg Reg mr Marsha Mary, Wilton Rodriguez RN, Brian, RN RN bp Brown, Sophia, JAIMEE PALouisa sb4 Logdanroma, Wero tl4
--- NOTE | 2023-11-29 21:18 | EDPHYS ---
Physician Documentation [facility] Name: Crys Tovar Age: 28 yrs Sex: Female : 1995 Arrival Date: 11/29/2023 Time: 17:09 Bed Treatment Private MD: ED Physician Gilda Amaya HPI: 11/29 17:52 This 28 yrs old Female presents to ER via Ambulatory with complaints of Chest sb4 Pain, Back Pain. 17:52 patient states that she started experiencing left sided chest pain, left neck pain, and sb4 right sided lower back pain last night while cooking dinner. she doesn't recall any specific injury. has not taken anything for the pain. pain is aggravated by certain movements, pressure to the area, and deep breaths. endorses some nausea but no vomiting, abd pain, or diarrhea. no fever or recent URI symptoms. VP CLIENT SERVICES: 23:09 LMP 10/2023, unknown tl4 Historical: - Allergies: 17:24 No Known Allergies; bp - PMHx: 17:24 Anxiety; Migraines; Vertigo; Cerebrovascular accident; bp - PSHx: 17:24 Tonsillectomy; bp - Immunization history:: Adult Immunizations unknown. - Social history:: Smoking status: unknown. ROS: 17:52 Constitutional: Negative for fever, chills, and weight loss, sb4 17:52 ENT: 17:52 Neck: Positive for pain with movement, pain at rest, tenderness, 17:52 Cardiovascular: Positive for chest pain, 17:52 Back: Positive for pain at rest, pain with movement, 17:52 MS/extremity: 17:52 All other systems are negative, Exam: 17:52 Constitutional: This is a well developed, well nourished patient who is awake, alert, sb4 and in no acute distress. Head/Face: Normocephalic, atraumatic. Eyes: Extra-ocular motions intact. Periorbital areas with no swelling, redness, or edema. ENT: Mucous membranes moist. Cardiovascular: Regular rate and rhythm with a normal S1 and S2. Respiratory: Lungs have equal breath sounds bilaterally, clear to auscultation and percussion. No rales, rhonchi or wheezes noted. No increased work of breathing, no retractions or nasal flaring. Abdomen/GI: Soft, non-tender, no distension. Skin: Warm, dry with normal turgor. Normal color with no rashes, no lesions, and no evidence of cellulitis. MS/ Extremity: Pulses equal, no cyanosis. Neurovascular intact. Full, normal range of motion. Neuro: Awake and alert, GCS 15, oriented to person, place, time, and situation. Motor strength 5/5 in all extremities. Sensory grossly intact. 17:52 Neck: ROM/movement: pain, that is mild, with any movement, 17:52 Chest/axilla: Inspection: normal, Palpation: tenderness, that is moderate, of the anterior aspect of left upper chest, that partially reproduces the patient's complaints, Vital Signs: 17:24 BP 128 / 87; Pulse 100; Resp 16; Temp 98; Pulse Ox 100% ; bp 19:53 BP 101 / 65; Pulse 85; Resp 16; Pulse Ox 99% on R/A; tl4 20:11 BP 102 / 69; Pulse 92; Resp 16; Pulse Ox 99% ; tl4 23:02 BP 111 / 78; Pulse 88; Resp 18; Pulse Ox 100% on R/A; Pain 5/10; tl4 23:02 Pain Scale: Adult tl4 [place] Coma Score: 19:53 Eye Response: spontaneous(4). Motor Response: obeys commands(6). Verbal Response: tl4 oriented(5). Total: 15. MDM: 17:20 Patient medically screened. sb4 19:04 Data reviewed: nurses notes. gb1 21:22 Counseling: I had a detailed discussion with the patient and/or guardian regarding the sb4 historical points, exam findings, and any diagnostic results supporting the discharge/admit diagnosis, lab results, radiology results, to return to the emergency department if symptoms worsen or persist or if there are any questions or concerns that arise at home. 21:22 Scoring Tools HEART Score: History: ECG: Age: Risk Factors: 1 or 2 risk factors (1), sb4 Troponin: Total Score = 1. 11/29 17:27 Order name: Basic Metabolic Panel; Complete Time: 19:11 sb4 11/29 17:27 Order name: CBC with Diff; Complete Time: 18:48 sb4 11/29 17:27 Order name: D-Dimer; Complete Time: 18:56 sb4 11/29 17:27 Order name: LFT's; Complete Time: 19:11 sb4 11/29 17:27 Order name: Magnesium; Complete Time: 19:11 sb4 11/29 17:27 Order name: PT-INR; Complete Time: 18:56 sb4 11/29 17:27 Order name: Troponin HS; Complete Time: 19:11 sb4 11/29 17:27 Order name: COVID-19 SARS RT PCR; Complete Time: 19:25 sb4 11/29 17:27 Order name: XRAY Chest (1 view); Complete Time: 18:38 sb4 11/29 17:27 Order name: Head Brain Wo Cont CT; Complete Time: 19:10 sb4 11/29 19:10 Order name: CT Chest For PE Angio; Complete Time: 21:28 sb4 11/29 17:27 Order name: EKG; Complete Time: 17:28 sb4 11/29 17:27 Order name: Cardiac monitoring; Complete Time: 19:47 sb4 11/29 17:27 Order name: EKG - Nurse/Tech; Complete Time: 18:13 sb4 11/29 17:27 Order name: IV Saline Lock; Complete Time: 18:30 sb4 11/29 17:27 Order name: Labs collected and sent; Complete Time: 18:30 sb4 11/29 17:27 Order name: O2 Per Protocol; Complete Time: 18:30 sb4 11/29 17:27 Order name: O2 Sat Monitoring; Complete Time: 18:30 sb4 Administered Medications: 20:11 Drug: Ketorolac IVP 30 mg IVP once Route: IVP; Infused Over: 2 mins; Site: left tl4 antecubital; 21:16 Follow up: Response: Pain is decreased tl4 21:55 Drug: Diazepam IVP 5 mg IVP once Route: IVP; Infused Over: 2 mins; Site: left tl4 antecubital; 22:38 Follow up: Response: No adverse reaction; Pain is decreased tl4 21:55 Drug: Cyclobenzaprine PO 10 mg PO once Route: PO; tl4 22:37 Follow up: Response: Pain is decreased tl4 21:55 Drug: Ondansetron IVP 4 mg IVP once; over 2 minutes Route: IVP; Infused Over: 2 mins; tl4 Site: left antecubital; 22:37 Follow up: Response: No adverse reaction tl4 Disposition: 19:04 Co-signature as Attending Physician, Gilda Amaya MD I agree with the assessment and gb1 plan of care. I reviewed the patient's care provided by the Advanced Practice Provider and agree with the diagnosis and treatment plan. Disposition Summary: 11/29/23 21:17 Discharge Ordered Notes: Location: Home sb4 Problem: new sb4 Symptoms: have improved sb4 Condition: Stable sb4 Diagnosis - Myalgia sb4 Followup: sb4 - With: Emergency Department - When: As needed - Reason: Trouble breathing, Worsening of condition Discharge Instructions: - Discharge Summary Sheet sb4 - Muscle Pain, Adult sb4 Forms: - Medication Reconciliation Form sb4 - Thank You Letter sb4 - Antibiotic Education sb4 - Prescription Opioid Use sb4 - Patient Portal Instructions sb4 - Leadership Thank You Letter sb4 Prescriptions: - Cyclobenzaprine 10 mg Oral Tablet - take 1 tablet ORAL route every 8 hours As needed; 30 tablet; Refills: 0, sb4 Product Selection Permitted - Diclofenac Sodium 75 mg Oral Tablet Sustained Release - take 1 tablet ORAL route 2 times per day; 30 tablet; Refills: 0, Product sb4 Selection Permitted - Medrol (Neftali) 4 mg Oral Tablets, Dose Pack - take 1 tablet ORAL route as directed - follow package instructions; 1 packet; sb4 Refills: 0, Product Selection Permitted Signatures: Dispatcher [employer] Gabriel Gerardo, RN RN Mary Plata, PALenaC PALenaC sb4 Gilda Amaya MD MD gb1 Logdanorma, Wero tl4
--- NOTE | 2023-11-29 21:26 | RAD REPORT ---
EXAM DESCRIPTION: CT - Chest For Pe Angio - 11/29/2023 8:46 pm CLINICAL HISTORY: elevated ddimer;Chest pain COMPARISON: Chest For Pe Angio dated 07/13/2021 TECHNIQUE: Thin axial CT images of the chest were obtained following administration of 95 mL Isovue 370 IV contrast. Multiplanar reconstructions, and maximum intensity projection reconstructions were g enerated and reviewed. Exam utilizes a protocol for optimal evaluation of pulmonary arterial tree. All CT scans are performed using dose optimization technique as appropriate and may include automated exposure control or mA/KV adjustment according to patient size. FINDINGS: Pulmonary arteries are normal. No emboli or other suspicious finding. No acute or signific ant aorta findings. Aberrant right subclavian artery is incidentally noted. No mass or infiltrate in the lung parenchyma. No pleural thickening or pleural effusion. No pneumotho rax. No abnormal mediastinal or hilar masses or lymphadenopathy seen. No chest wall mass or abnormal axill iary lymphadenopathy. IMPRESSION: No evidence of acute central pulmonary emboli. No other acute pulmonary process.
[2023-11-30 02:50] VITALS: TEMP 98; O2SAT 100
[2023-11-30 03:02] VITALS: BP 111/78
--- NOTE | 2023-11-30 17:12 | EKG ---
Test Date: 2023-11-29 Test Time: 18:09:32 Home Administrator: ACE MEASUREMENT RESULTS: Intervals: Rate: 93 NC: 152 QRSD: 82 QT: 338 QTc: 420 [place]: P: 55 NC: 152 QRS: 81 T: 47 INTERPRETIVE STATEMENTS: Normal sinus rhythm Possible Left atrial enlargement Cannot rule out Anterior infarct, age undetermined Abnormal ECG Compared to ECG 07/13/2021 14:25:36 Myocardial infarct finding now present Sinus tachycardia no longer present Right-axis deviation no longer present Electronically Signed On 11-30-23 17:10:15 SENIOR WEALTH ADVISOR by Colin Melissa
== END ==
LOC: ER 17:09
DX: M79.10 Myalgia, unspecified site (principal); R07.89 Other chest pain
CPT/HCPCS: 36415; 70450; 71045; 71275; 80048; 80076; 83735; 84484; 85025; 85379; 85610; 87635; 93005; 96374; 96375; 99285; J2405; J3360; Q9967